=== PATIENT | female | born 1990 | race Caucasian/White ===

== ENCOUNTER 2017-05-27 11:08 | Emergency (ER) | payer OTHER ==
[~2017-05-27] VITALS: Ht 157.5 cm; Wt 60.0 kg
[~2017-05-27 11:08] MED LIST: CIPR-255 PO; LEVO-645 PO; SERT50TA PO
[2017-05-27 11:12] VITALS: TEMP 36.5; O2SAT 98; Ht 157.5 cm; Wt 60.0 kg
[2017-05-27] MEDS ORDERED: BCPILLS PO (11:53)
[2017-05-27] MEDS ORDERED: KETOROLAC TROMETHAMINE 60 MG/2 ML VIAL IM STA (12:08)
[2017-05-27] MEDS ORDERED: CYCL10TA6 PO (12:25)
--- NOTE | 2017-05-27 12:25 | EMERGENCY ROOM VISIT NOTE ---
ED Visit Note First contact with patient: 11:19 CHIEF COMPLAINT: Low back pain 4-5 days HISTORY OF PRESENT ILLNESS: Patient is an otherwise healthy 27-year-old white female who presents the emergency department for evaluation of low back pain. She describes a constant spasming pain in the midline of her low back, that does not radiate. Her symptoms started after doing core exercises over the weekend, roughly 5 days ago. She states that she had some expected pain the following day, and thought that she was starting to get a little bit better, then her symptoms worsened today after she was carrying some heavy boxes up some stairs. She states the pain had been a 4/10, which was manageable, but today the pain became a 8/10. She does have a history of some back problems and has seen orthopedics and physical therapy in the past. She has been told she has had some mild disc degeneration and facet joint issues. She describes pain with movement, particularly changing positions from sitting to standing. She has been doing heat, but has not taken any medications for her symptoms this week. She has used Flexeril in the past, but only at bedtime due to sedation. She denies any direct trauma to the back, no numbness, tingling or weakness into the lower extremities. No bowel or bladder incontinence. REVIEW OF SYSTEMS: Review of systems as per HPI. All other systems reviewed were negative. 10 systems reviewed. PMH: Electronic medical records are reviewed and summarized as above/below. See Problem List. SOCIAL HISTORY: Patient lives at home with her daughter. She is employed. Non -smoker. PHYSICAL EXAM: Vital Signs: Reviewed Nurse's notes. CONSTITUTIONAL: Patient is an otherwise healthy 27-year-old white female who is awake and alert and laying supine on the gurney in moderate distress due to their back pain. There is significant discomfort with position changes. NECK: No bruits auscultated. Supple without lymphadenopathy. No thyromegaly. No meningeal signs. Full active range of motion without discomfort. CARDIOVASCULAR: Regular rate and rhythm, with normal S1 and S2, no murmur or gallop or rub is heard. No carotid bruits auscultated. No JVD. Peripheral pulses easily palpable. RESPIRATORY: Breath sounds equal and clear to auscultation without wheezes, rales, or rhonchi heard. Full and equal chest expansion without accessory muscle use or retractions. ABDOMEN: Bowel sounds are present. Abdomen is soft, nontender and nondistended. INTEGUMENTARY: No lesions or rash, normal skin turgor. LYMPH: No lymphadenopathy. SPINE: Examination of the patient's back does not demonstrate any ecchymosis, abrasions or outward signs of trauma. No erythema, increased warmth or induration. Patient has midline discomfort to palpation over the low lumbar spine, there is no paraspinous muscle tenderness or spasm. There is no pain over the SI joint or the sciatic notch. She has increased pain with range of motion including rotation and flexion. EXTREMITIES: Leg lengths are symmetrical. Negative logroll bilaterally. Normal strength including dorsi-flexion and plantar flexion of the great toes and ankles and flexion and extension of the knees and flexion of the hips. Negative bilateral straight leg raise testing. Lower extremity DTRs are equal and symmetrical bilaterally. Distal pulses are easily palpable. Sensation light touch is intact over the lower extremities bilaterally. EMERGENCY DEPARTMENT COURSE: The patient was seen and evaluated. Her old records are reviewed. Treatment options were discussed with the patient. She does not have any new trauma or direct injury to the back to suspect fracture, and therefore it was not felt that radiographs were indicated. She is reluctant to use any narcotic medications due to sedation, after discussing with the patient her options she was agreeable to an injection of IM Toradol, then will use prescription strength ibuprofen. She was also willing to try using some Flexeril at bedtime. She was given Toradol 60 mg IM, observed and then discharged. Supportive care measures were discussed. She was encouraged to continue moist heat and gentle stretching and range of motion exercises. She reports that she has an orthopedic appointment on Thursday the . I do not suspect acute cord compression or cauda equina syndrome. The patient rated her discomfort a 7/10 at discharge. She was accompanied by her boyfriend. Medication reconciliation: I attest that I have personally reviewed the patient' s current medication list. Blood pressure screening: Patient was found to have a slightly elevated blood pressure due to circumstances. I do not believe that the patient requires hypertension monitoring. Problem List Medical Problems: (1) Removal of ovarian cyst Status: Resolved Surgical Problems: (1) Fractured nasal bones Status: Resolved (2) Tonsillectomy and adenoidectomy Status: Resolved Current/Historical Medications Scheduled Control Pills ( Control Pills), 1 TAB PO DAILY Ibuprofen Tab (Motrin), 800 MG PO TIDM Scheduled PRN Cyclobenzaprine Hcl (Flexeril), 10 MG PO TID PRN for Muscle Spasms Allergies Coded Allergies: No Known Allergies (Verified , ?, 05/27/17) Vital Signs Date Time Temp Pulse Resp B/P (MAP) Pulse Ox O2 Delivery O2 Flow Rate FiO2 05/27/17 12:47 64 16 105/71 05/27/17 11:12 36.5 113 20 147/87 98 Room Air Medications Administered Medications (Trade) Dose Ordered Sig/Ofe Route Start Time Stop Time Status Last Admin Dose Admin Ketorolac Tromethamine (Toradol Inj) 60 mg NOW STAT IM 05/27/17 12:08 05/27/17 12:09 DC 05/27/17 12:19 60 MG Departure Information Impression Primary Impression: Strain of lumbar region Prescriptions Ibuprofen Tab (MOTRIN) 800 Mg Tab 800 MG PO TIDM, #90 TAB Prov: Racheal Patel PA 05/27/17 Cyclobenzaprine Hcl (FLEXERIL) 10 Mg Tab 10 MG PO TID Y for Muscle Spasms, #20 TAB Prov: Racheal Patel PA 05/27/17 Referrals Gus Khan M.D. (PCP) Patient Instructions [facility] Additional Instructions Cyclobenzaprine (Flexeril) 10 mg: Take 5-10 mg 3 times daily as needed for muscle spasms.. Avoid alcohol, operating machinery or dangerous equipment, working on ladders or roofs, DRIVING, or situations where being under the influence may be dangerous. Ibuprofen(Motrin, Advil) may be used for fever or pain. Use 800 mg 3 times daily with food. Avoid using more than 2400mg in a 24 hour period. Do not use 2400mg per day for more than three consecutive days without physician direction. Prolonged inappropriate use can lead to stomach upset or ulcers. This medication can be taken if you need to drive, work, or perform activities which may be dangerous when taking narcotic pain medication. (AND/OR) Acetaminophen(Tylenol) may be used for fever or pain. Use 1000mg every six hours as needed. Avoid using more than 3000mg in a 24 hour period. This medication can be taken if you need to drive, work, or perform activities which may be dangerous when taking narcotic pain medication. Rest and avoid heavy lifting until your symptoms resolve and then gradually return to full activity. A good rule of thumb is if it hurts your back to perform a certain activity, then it should be avoided until you are healthy again. A heating pad, warm compresses, or a hot shower may help with tight muscles and can be done several times a day as needed. Continue current medications. Return to the ER immediately for any numbness, tingling, severe pain, loss of control of your bowels or bladder, inability to walk, or as needed. Follow up with orthopedics as you have scheduled for a recheck of your current condition.
[2017-05-27 12:47] VITALS: BP 105/71; PULSE 64
[2017-05-27] MEDS ORDERED: IBUP-1451 PO (13:12)
== END 2017-05-27 13:02 | disposition home or self-care (01) ==
LOC: C.EDB 11:09 → C.EDD 13:02
DX: S39.012A Strain of muscle, fascia and tendon of lower back, initial encounter (principal); X50.0XXA Overexertion from strenuous movement or load, initial encounter; Z79.3 Long term (current) use of hormonal contraceptives

== ENCOUNTER → 2017-06-01 | Outpatient (CLI) | payer OTHER ==
[~2017-06-01] MED LIST changes: +BCPILLS PO; -CIPR-255 PO; +CYCL10TA6 PO; +IBUP-1451 PO; -LEVO-645 PO; -SERT50TA PO
--- NOTE | 2017-06-01 15:32 | DIAGNOSTIC IMAGING REPORT ---
LUMBAR SPINE MIN 4 VIEWS CLINICAL HISTORY: LOWER BACK PAIN COMPARISON STUDY: No previous studies for comparison. FINDINGS: No fractures or dislocations are visualized. There are mild degenerative changes the T11-12 level. No destructive lesions are visualized. There is no pathologic bowel dilatation. IMPRESSION: No fractures or dislocations identified. Electronically signed by: Guero Cabrera M.D. 06/01/2017 3:31 PM Dictated Date/Time: 06/01/2017 3:30 PM
== END | disposition home or self-care (01) ==
LOC: C.RDSM 20:18
DX: M54.5 Low back pain (principal)

== ENCOUNTER → 2017-06-11 | Outpatient (CLI) | payer OTHER ==
[~2017-06-11] MED LIST changes: -CYCL10TA6 PO
--- NOTE | 2017-06-11 09:09 | DIAGNOSTIC IMAGING REPORT ---
LUMBAR SPINE MRI HISTORY: LOWER BACK PAIN TECHNIQUE: Multiplanar multisequence MRI of the lumbar spine was performed without the use of contrast. COMPARISON: Lumbar spine 06/01/2017. FINDINGS: For the purpose of the report the L5-S1 disc space will be located on axial image 27 of 30. Mild disc space narrowing and small endplate osteophytes at T11-T12. Disc desiccation at L4-L5 and L5-S1 without significant displacement. No fracture or subluxation within the lumbar spine. Paraspinal soft tissues are unremarkable. The conus terminates at the L1-L2 disc space level. L1-L2: No significant central canal or neural foraminal narrowing. L2-L3: No significant central canal or neural foraminal narrowing. L3-L4: No significant central canal or neural foraminal narrowing. L4-L5: Small focal central disc protrusion without significant central canal or neural foraminal narrowing. L5-S1: Small focal central disc protrusion without significant central canal or neural foraminal narrowing. IMPRESSION: 1. Small focal central disc protrusions at L4-L5 and L5-S1 without significant central canal or neural foraminal narrowing. 2. No fracture or subluxation within the lumbar spine. Electronically signed by: Qasim Brandt M.D. 06/11/2017 9:07 AM Dictated Date/Time: 06/11/2017 9:03 AM
== END | disposition home or self-care (01) ==
LOC: C.MRI 07:47
PROVIDERS: ATTEND Family Medicine
DX: M51.27 Other intervertebral disc displacement, lumbosacral region (principal)

== ENCOUNTER 2020-11-17 23:58 | Inpatient (IN) ==
[2020-11-18] MEDS ORDERED: OXYTOCIN 30 UNITS/500 ML BAG IV PRN ×2 (00:47→01:54)
[2020-11-18] MEDS: LACTATED RINGER'S 1,000 ML IV PRN ×3 (01:03→07:30)
[2020-11-18 01:09] LABS: Hematocrit (blood only) 31.9 % (37-47); Hemoglobin 10.6 g/dL (12.0-16.0); Mean Corpuscular Hemoglobin 30.5 pg (25-34); Mean Corpuscular Hgb Conc 33.2 g/dL (32-36); Mean Corpuscular Volume 91.9 fL (80-100); Mean Platelet Volume 9.5 fL (7.4-10.4); Platelet Count 333 K/uL (130-400); RDW Coefficient of Variation 13.2 % (11.5-14.5); Red Blood Count 3.47 M/uL (4.2-5.4); White Blood Count 19.15 K/uL (4.8-10.8)
[2020-11-18] MEDS ORDERED: SODIUM CHLORIDE 0.9% INJ 10 ML VIAL ONE (01:20)
[2020-11-18] MEDS ORDERED: ePHEDrine sulfate 50 MG/ML AMP ONE (01:20)
[2020-11-18] MEDS ORDERED: BUPIVACAINE 0.25% 30 ML VIAL ONE (01:20)
[2020-11-18] MEDS ORDERED: fentaNYL citrate 100 MCG/2 ML VIAL ONE (01:20)
[2020-11-18] MEDS ORDERED: fentaNYL 2MCG/ML ROPIVACAINE 1.25MG/ML 100 ML BAG EPI ONE (01:21)
[2020-11-18] MEDS ORDERED: ONDANSETRON INJ 2 MG/ML 2 ML VIAL IV PRN ×2 (01:24→08:27)
[2020-11-18] MEDS ORDERED: diphenhydrAMINE 50 MG/ML VIAL IV PRN ×2 (01:24→08:27)
[2020-11-18] MEDS ORDERED: fentaNYL 2MCG/ML ROPIVACAINE 1.25MG/ML 100 ML BAG EPI PRN (01:24)
[2020-11-18] MEDS ORDERED: ePHEDrine sulfate 50 MG/ML AMP IV PRN ×2 (01:24→08:27)
[2020-11-18] MEDS ORDERED: NALBUPHINE HCL INJ 10 MG/ML AMP IV PRN ×2 (01:24→08:27)
[2020-11-18] MEDS ORDERED: NALOXONE HCL 1 MG in SODIUM CHLORIDE 0.9% 1000ML 1,000 ML IV PRN ×2 (01:24→08:27)
[2020-11-18] MEDS ORDERED: NALOXONE HCL 0.4 MG/1 ML VIAL/CARP IV PRN ×2 (01:24→08:27)
--- NOTE | 2020-11-18 01:35 | Anesthesiology Consultation ---
Date of Service November 18, 2020 Assessment & Plan Chart Review Chart Review: Patient NOT seen in Pre Admission Testing and Acceptable Risk for Labor Epidural Consults Requested none ASA ASA2 Proposed Anesthesia Anesthesia Type: Labor Epidural and CSE Risk / Benefits Reviewed With: PT / POA / Parent / Guardian, Accepts Plan and Informed Consent Obtained History Height/Weight Height: 5 ft 2 in Weight: 84.368 kg Allergies Allergy/AdvReac Type Severity Reaction Status Date / Time No Known Allergies Allergy ? Verified 11/18/20 00:19 Medications Home Medications Medication Instructions Recorded Confirmed Last Taken [id number]-[id number]-Ob-[id number] 1 mg 1 tab PO DAILY 11/18/20 11/18/20 11/17/20 tablet valacyclovir 500 mg tablet 500 mg PO DAILY 11/18/20 11/18/20 Unknown (Valtrex) Active Medications Generic Name Dose Route Start Last Admin Trade Name Freq PRN Reason Stop Dose Admin Lactated Ringer's 1,000 mls @ 125 mls/hr 11/18/20 00:47 11/18/20 01:03 Lr IV 11/20/20 00:46 999 mls/hr .Q8H PRN Administration L&D Protocol Protocol NPO Date Last Intake of Fluids: 11/17/20 Time Last Intake of Fluids: 18:00 Date Last Intake of Solids: 11/17/20 Time Last Intake of Solids: 18:00 Past Medical History Medical History (Updated 11/18/20 @ 00:18 by Kiki Torres, RN) Anxiety Depression no meds Spontaneous vaginal delivery 01/2009 [facility] Exercise / Class Metabolic Activity II 4-5 Yardwork/Stairs/Walk up hill Past Surgical History Surgical History (Updated 11/18/20 @ 00:18 by Kiki Torres, RN) Status post tonsillectomy and adenoidectomy Past Anesthesia History No Hx of Anesthesia Complications and No Family Hx of Anesthesia Complications History of PONV No Hx of PONV and No Hx of Motion Sickness Social History Hx Alcohol Use: No Hx Substance Use: No Review of Systems no chest pain or sob Physical Exam Vital Signs Last Vital Signs Temp 36.7 C 11/18/20 00:23 Pulse 82 11/18/20 01:32 Resp 18 11/18/20 00:23 BP 118/76 11/18/20 00:10 Pulse Ox 98 11/18/20 01:32 ENMT Mouth: no TMJ abnormality Thyromental Distance: > or= 3.5 Finger Breadths Mallampati Class: II Neck normal visual inspection Respiratory normal respiratory effort Auscultation: lungs clear to auscultation bilaterally Cardiovascular Rate/Rhythm: regular rate and regular rhythm Musculoskeletal Spine: normal cervical ROM Neurologic moves all extremities Psychiatric Orientation: alert and oriented x 3 Testing Laboratory Results 11/18/20 00:57
--- NOTE | 2020-11-18 01:36 | History & Physical Report ---
Date of Service November 18, 2020 Assessment & Plan (1) Spontaneous rupture of amniotic membranes: Plan: 30-year-old -0-0-1 at 39 weeks and 3 days of gestation presenting with spontaneous rupture of membranes at term, vital signs stable afebrile, heart rate reassuring, No medical problems, GBS negative, Plan to admit, monitor, IV fluids, epidural for pain. Discussed his risk of intraamniotic infection with augmentation with oxytocin. Patient is reluctant to start oxytocin. Recommended recheck in 2 hours and if there is no change in cervix start low-dose oxytocin per protocol. Patient will decide in 2 hours when the cervix will be rechecked. Counseled about risks of intermittent infection to herself as endometritis, bacteremia, sepsis longer hospital stay and risk to the infant with IV antibiotic usage and longer stay. Patient understands all and all questions were answered. Admission and Anticipated Discharge Date Admission Date: November 18, 2020 History of Present Illness Chief Complaint: LOF Primary Care Provider: Gus Khan MD Patient is a 30 yo -0-0-1 at 39 weeks and 3 days of gestation who presented to labor and delivery with spontaneous rupture of membranes that happened at 11 PM last night on November 17. It was mostly clear with pink-tinged in color. She started to have contractions every 4 to 5 minutes and getting more painful and desires epidural for pain. She reports good movements. Her has been uncomplicated. All the testings and ultrasound were negative/normal. GBS negative. Rh- Allergies Allergy/AdvReac Type Severity Reaction Status Date / Time No Known Allergies Allergy ? Verified 11/18/20 00:19 Home Medications Medication Instructions Recorded Confirmed Type gpuxsxdn-gky-Rc-FA 1 mg 1 tab PO DAILY 11/18/20 11/18/20 History tablet valacyclovir 500 mg tablet 500 mg PO DAILY 11/18/20 11/18/20 History (Valtrex) Patient History Medical History Anxiety Depression no meds Spontaneous vaginal delivery 01/2009 [facility] Surgical History Status post tonsillectomy and adenoidectomy Social History Hx Alcohol Use: No Hx Substance Use: No Preferred Language: Armenian Communication Ability: Effective Wild Life Photographer Required: No Beliefs That Will Affect Care: None marital status: Current Living Situation: Spouse Current Living Situation Comment: house with and daughter Other Information That Helps Us Care for You: No Feels Safe at Home: Yes Safety Concerns: Feels Safe At This Time Assistive Devices: None OB History Full-term in 2009, female, 7 pounds 11 ounces, no complications. 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 Review of Systems as per Subjective / HPI Physical Exam Constitutional: well developed, well nourished and + acute distress (Mild distress with contractions only) Gastrointestinal (Abdomen): Inspection/Auscultation: abdomen normal to inspection and + abdomen distended (Gravid, Sivakumar 8-9 pounds) Genitourinary: normal external appearance (Grossly ruptured, clear amniotic fluid, nitrazine positive) OB Exam Abdomen: + vertex (Confirmed with bedside ultrasound) Manual OB Exam: + cervical dilation 4 cm, + cervical effacement 50% and + station -2 OB Exam Monitor Tracing: + external uterine monitor used and + category I Results & Data ([facility]) Vital Signs (Past 12 Hours) Vital Signs Temp Pulse Resp BP Pulse Ox 11/18/20 01:32 82 98 11/18/20 00:23 36.7 C 18 11/18/20 00:10 81 118/76 Laboratory Results Lab Results 11/18/20 11/18/20 11/18/20 Range/Units 00:46 00:46 00:57 WBC 19.15 H (4.8-10.8) K/uL RBC 3.47 L (4.2-5.4) M/uL Hgb 10.6 L (12.0-16.0) g/dL Hct 31.9 L (37-47) % MCV 91.9 (80-100) fL MCH 30.5 (25-34) pg MCHC 33.2 (32-36) g/dL RDW Std Deviation 44.0 (36.4-46.3) fL RDW Coeff of Maria D 13.2 (11.5-14.5) % Plt Count 333 (130-400) K/uL MPV 9.5 (7.4-10.4) fL COVID-19 Eval [facility] SARS-CoV-2, RNA, NAAT NEGATIVE (NEGATIVE) Code Status & VTE Plan VTE Prophylaxis Plan VTE Prophylaxis will be ordered: No
[2020-11-18] MEDS ORDERED: TERBUTALINE SULFATE 1 MG/ML VIAL ONE (07:50)
[2020-11-18] MEDS ORDERED: CITRIC ACID/SODIUM CITRATE 15 ML UDC ONE (07:55)
--- NOTE | 2020-11-18 07:59 | Obstetrical Progress Note ---
Date of Service November 18, 2020 Assessment & Plan Admission and Anticipated Discharge Date Admission Date: November 18, 2020 Subjective Patient has progressed to full dilatation. heart rate has been having decelerations with contractions, after more prolonged. We start to push for few times heart rate had prolonged decelerations to the 60s to 70s. Head is at +2 station with no descent with pushing. Patient is recommended to have imminent delivery with primary . She understands is a major surgery with possible risks of bleeding, infection, injury to her surrounding organs like bowel, bladder, ureter and increased risk of blood clots in legs and lungs. Patient understands and signed an informed consent. Terbutaline was given, heart rate is back up to 120s 130s. Results & Data ([facility]) Vital Signs (Past 12 Hours) Vital Signs Temp Pulse Resp BP Pulse Ox 11/18/20 07:53 91 H 100 11/18/20 07:48 87 100 11/18/20 07:46 111 H 80 L 11/18/20 07:44 93 H 124/80 11/18/20 07:43 90 100 11/18/20 07:39 117 H 74 L 11/18/20 07:38 103 H 100 11/18/20 07:33 100 H 100 11/18/20 07:31 90 120/79 11/18/20 07:28 96 H 100 11/18/20 07:23 91 H 100 11/18/20 07:18 90 100 11/18/20 07:14 95 H 122/58 L 11/18/20 07:13 101 H 100 11/18/20 07:10 99 H 89 L 11/18/20 07:08 89 100 11/18/20 07:03 103 H 100 11/18/20 07:00 36.4 C L 18 11/18/20 06:59 96 H 114/69 11/18/20 06:58 88 99 11/18/20 06:53 94 H 100 11/18/20 06:48 98 H 99 11/18/20 06:45 93 H 118/69 11/18/20 06:43 96 H 100 11/18/20 06:38 92 H 100 11/18/20 06:33 93 H 99 11/18/20 06:30 18 11/18/20 06:29 101 H 109/61 11/18/20 06:28 95 H 100 11/18/20 06:25 36.5 C 18 11/18/20 06:23 96 H 98 11/18/20 06:18 81 100 11/18/20 06:14 94 H 114/68 11/18/20 06:13 92 H 99 11/18/20 06:08 104 H 100 11/18/20 06:03 115 H 100 11/18/20 06:01 91 H 114/62 11/18/20 06:00 18 11/18/20 05:58 92 H 99 11/18/20 05:53 88 100 11/18/20 05:48 95 H 100 11/18/20 05:45 90 117/65 11/18/20 05:43 97 H 99 11/18/20 05:38 102 H 99 11/18/20 05:33 90 99 11/18/20 05:30 18 11/18/20 05:29 93 H 113/69 11/18/20 05:28 93 H 100 11/18/20 05:23 92 H 100 11/18/20 05:18 90 100 11/18/20 05:14 93 H 109/69 11/18/20 05:13 90 100 11/18/20 05:08 94 H 99 11/18/20 05:03 100 H 100 11/18/20 05:00 86 18 104/60 11/18/20 04:58 94 H 98 11/18/20 04:53 91 H 98 11/18/20 04:48 99 H 98 11/18/20 04:46 96 H 104/65 11/18/20 04:43 106 H 98 11/18/20 04:38 94 H 98 11/18/20 04:33 84 98 11/18/20 04:29 87 104/63 11/18/20 04:28 88 99 11/18/20 04:23 84 99 11/18/20 04:18 89 99 11/18/20 04:16 84 108/63 11/18/20 04:13 85 99 11/18/20 04:08 100 H 100 11/18/20 04:03 117 H 99 11/18/20 03:59 89 105/63 11/18/20 03:58 86 98 11/18/20 03:53 86 98 11/18/20 03:48 82 99 11/18/20 03:44 80 101/62 11/18/20 03:43 82 99 11/18/20 03:38 89 98 11/18/20 03:33 97 H 99 11/18/20 03:30 85 18 106/62 11/18/20 03:28 95 H 99 11/18/20 03:23 100 H 98 11/18/20 03:18 108 H 98 11/18/20 03:14 87 110/59 L 11/18/20 03:12 95 H 97 11/18/20 03:07 85 97 11/18/20 03:02 90 97 11/18/20 03:00 18 11/18/20 02:59 90 91/51 L 11/18/20 02:57 97 H 98 11/18/20 02:52 110 H 98 11/18/20 02:47 90 97 11/18/20 02:46 83 98/57 L 11/18/20 02:42 85 98 11/18/20 02:37 92 H 97 11/18/20 02:32 86 97 11/18/20 02:30 18 11/18/20 02:29 88 96/54 L 11/18/20 02:27 77 98 11/18/20 02:22 106 H 98 11/18/20 02:17 87 98 11/18/20 02:13 97 H 100/58 L 11/18/20 02:12 91 H 99 11/18/20 02:08 98 H 101/58 L 11/18/20 02:07 99 H 99 11/18/20 02:03 93 H 94/52 L 11/18/20 02:02 101 H 98 11/18/20 02:01 88 104/58 L 11/18/20 02:00 36.4 C L 18 11/18/20 01:59 91 H 99/58 L 11/18/20 01:57 95 H 95/49 L 99 11/18/20 01:55 105 H 106/58 L 11/18/20 01:53 96 H 110/57 L 11/18/20 01:52 90 109/55 L 99 11/18/20 01:49 85 109/61 11/18/20 01:47 101 H 123/76 99 11/18/20 01:45 89 131/77 11/18/20 01:43 96 H 135/82 11/18/20 01:42 93 H 99 11/18/20 01:40 88 93 11/18/20 01:39 93 H 133/81 11/18/20 01:37 94 H 158/96 H 98 11/18/20 01:32 82 98 11/18/20 01:30 20 11/18/20 00:23 36.7 C 18 11/18/20 00:10 36.7 C 81 18 118/76
[2020-11-18] MEDS ORDERED: MoRPHine SULFATE PF 1 MG/ML 10 ML AMP/VIAL ONE (08:01)
[2020-11-18] MEDS ORDERED: ONDANSETRON INJ 2 MG/ML 2 ML VIAL ONE (08:05)
[2020-11-18] MEDS ORDERED: METOCLOPRAMIDE HCL INJ 5 MG/ML 2 ML VIAL ONE (08:05)
[2020-11-18] MEDS ORDERED: SUCCINYLCHOLINE CHLORIDE 20 MG/ML 10 ML VIAL IV ONE (08:05)
[2020-11-18] MEDS ORDERED: PROPOFOL IV EMULSION 10 MG/ML 20 ML VIAL IV ONE (08:05)
[2020-11-18] MEDS ORDERED: OXYTOCIN 10 UNITS/ML VIAL ONE ×3 (08:05→08:41)
[2020-11-18] MEDS ORDERED: LIDOCAINE 2%/EPINEPHRINE 1:200,000 20 ML SDV ONE (08:05)
[2020-11-18] MEDS ORDERED: MEPERIDINE HCL 25 MG/ML CARP/VIAL IV PRN (08:27)
[2020-11-18] MEDS ORDERED: PROMETHAZINE HCL 6.25 MG in SODIUM CHLORIDE 0.9% 50 ML IV PRN (08:27)
[2020-11-18] MEDS ORDERED: MoRPHine SULFATE PF 1 MG/ML 10 ML AMP/VIAL EPI ONE (08:27)
[2020-11-18] MEDS ORDERED: LACTATED RINGER'S 500 ML IV PRN (08:27)
[2020-11-18] MEDS ORDERED: NALOXONE HCL 0.08 MG in SYRINGE 1.8 ML IV PRN (08:27)
[2020-11-18] MEDS ORDERED: DC INTRASPINAL MORPHINE SCH (08:30)
[2020-11-18] MEDS ORDERED: SODIUM CHLORIDE 0.9% 1000ML 1,000 ML IV SCH (08:30)
[2020-11-18] MEDS ORDERED: NO NARCOTICS OR SEDATIVES SCH (08:30)
[2020-11-18] MEDS ORDERED: METHYLERGONOVINE MALEATE 0.2 MG/ML AMP ONE (08:35)
[2020-11-18] MEDS ORDERED: MAGNESIUM HYDROXIDE SUSP 30 ML UDC PO PRN (09:13)
[2020-11-18] MEDS ORDERED: SENNA 8.6 MG TAB PO PRN (09:13)
[2020-11-18] MEDS ORDERED: SUPERCREAM 0.870% 15 GM JAR EXT PRN (09:13)
[2020-11-18] MEDS ORDERED: HYDROCORTISONE ACETATE 25 MG SUPP PR PRN (09:13)
[2020-11-18] MEDS ORDERED: DIPHTHERIA/TETANUS/PERTUSSIS 0.5 ML SYR/VIAL IM ONE (09:13)
[2020-11-18] MEDS ORDERED: MEASLES, MUMPS & RUBELLA VIRUS VIAL SQ ONE (09:13)
[2020-11-18] MEDS ORDERED: BENZOCAINE 20% AER SPR 82.5 GM CAN EXT PRN (09:13)
--- NOTE | 2020-11-18 09:13 | Post Operative Brief Note ---
Immediate Post Op Note v1 Date of Surgery November 18, 2020 Pre & Post Diagnosis Operation Date: 11/18/20 08:00 <No data on this case meets the specified criteria> I identified the patient and participated in the time-out.: Yes Procedure Operation Date: 11/18/20 08:00 <No data on this case meets the specified criteria> Primary Low transverse Ceserean Section Surgeon Aneudy Kmi MD Baller Tender RACHNA Trotter Estimated Blood Loss 700 Findings Consistent with Post-Op Diagnosis Drains Cash Catheter Anesthesia Type Labor Epidural Complications none Disposition Accompanied Patient To Recovery: Yes
[2020-11-18] MEDS ORDERED: LACTATED RINGER'S 1,000 ML IV SCH (09:15)
--- NOTE | 2020-11-18 10:48 | Anesthesia Procedure Note ---
Date of Service November 18, 2020 Anesthesia Post Epidural Note Vital Signs Vital Signs: Temp Pulse Resp BP Pulse Ox 36.5 C 86 18 112/63 100 11/18/20 09:15 11/18/20 10:46 11/18/20 10:15 11/18/20 10:46 11/18/20 10:43 Notes Mental Status: alert / awake / arousable and participated in evaluation Nausea / Vomiting: adequately controlled Pain: adequately controlled Airway Patency, RR, SpO2: stable & adequate BP & HR: stable & adequate Hydration State: stable & adequate Neuraxial Anesthesia: was administered and sensory block is resolving Anesthetic Complications: no major complications apparent Epidural: Removed without complications and With tip intact
--- NOTE | 2020-11-18 10:48 | Anesthesiology Progress Note ---
Date of Service November 18, 2020 Anesthesia Post Procedure Vital Signs Vital Signs: Temp Pulse Resp BP Pulse Ox 11/18/20 10:46 86 112/63 11/18/20 10:43 93 H 100 11/18/20 10:38 97 H 100 11/18/20 10:36 90 109/59 L 11/18/20 10:33 89 100 11/18/20 10:28 87 100 11/18/20 10:26 91 H 110/56 L 11/18/20 10:23 89 100 11/18/20 10:18 94 H 100 11/18/20 10:16 93 H 110/57 L 11/18/20 10:15 18 11/18/20 10:13 95 H 99 11/18/20 10:08 96 H 100 11/18/20 10:07 105 H 113/57 L 11/18/20 10:05 16 11/18/20 10:03 102 H 98 11/18/20 09:58 105 H 97 11/18/20 09:57 116 H 110/62 11/18/20 09:55 18 11/18/20 09:53 92 H 97 11/18/20 09:48 99 H 97 11/18/20 09:46 102 H 108/55 L 11/18/20 09:45 18 11/18/20 09:43 97 H 96 11/18/20 09:38 101 H 97 11/18/20 09:36 101 H 109/55 L 11/18/20 09:35 18 11/18/20 09:33 106 H 96 11/18/20 09:28 102 H 97 11/18/20 09:25 18 11/18/20 09:23 99 H 97 11/18/20 09:18 109 H 97 11/18/20 09:15 36.5 C 18 11/18/20 09:13 97 H 105/55 L 95 11/18/20 07:59 117 H 141/77 H 11/18/20 07:58 124 H 100 11/18/20 07:53 91 H 100 11/18/20 07:48 87 100 11/18/20 07:46 111 H 80 L 11/18/20 07:44 93 H 124/80 11/18/20 07:43 90 100 11/18/20 07:39 117 H 74 L 11/18/20 07:38 103 H 100 11/18/20 07:33 100 H 100 11/18/20 07:31 90 120/79 11/18/20 07:28 96 H 100 11/18/20 07:23 91 H 100 11/18/20 07:18 90 100 11/18/20 07:14 95 H 122/58 L 11/18/20 07:13 101 H 100 11/18/20 07:10 99 H 89 L 11/18/20 07:08 89 100 11/18/20 07:03 103 H 100 11/18/20 07:00 36.4 C L 18 11/18/20 06:59 96 H 114/69 11/18/20 06:58 88 99 11/18/20 06:53 94 H 100 11/18/20 06:48 98 H 99 11/18/20 06:45 93 H 118/69 11/18/20 06:43 96 H 100 11/18/20 06:38 92 H 100 11/18/20 06:33 93 H 99 11/18/20 06:30 18 11/18/20 06:29 101 H 109/61 11/18/20 06:28 95 H 100 11/18/20 06:25 36.5 C 18 11/18/20 06:23 96 H 98 11/18/20 06:18 81 100 11/18/20 06:14 94 H 114/68 11/18/20 06:13 92 H 99 11/18/20 06:08 104 H 100 11/18/20 06:03 115 H 100 11/18/20 06:01 91 H 114/62 11/18/20 06:00 18 11/18/20 05:58 92 H 99 11/18/20 05:53 88 100 11/18/20 05:48 95 H 100 11/18/20 05:45 90 117/65 11/18/20 05:43 97 H 99 11/18/20 05:38 102 H 99 11/18/20 05:33 90 99 11/18/20 05:30 18 11/18/20 05:29 93 H 113/69 11/18/20 05:28 93 H 100 11/18/20 05:23 92 H 100 11/18/20 05:18 90 100 11/18/20 05:14 93 H 109/69 11/18/20 05:13 90 100 11/18/20 05:08 94 H 99 11/18/20 05:03 100 H 100 11/18/20 05:00 86 18 104/60 11/18/20 04:58 94 H 98 11/18/20 04:53 91 H 98 11/18/20 04:48 99 H 98 11/18/20 04:46 96 H 104/65 11/18/20 04:43 106 H 98 11/18/20 04:38 94 H 98 11/18/20 04:33 84 98 11/18/20 04:29 87 104/63 11/18/20 04:28 88 99 11/18/20 04:23 84 99 11/18/20 04:18 89 99 11/18/20 04:16 84 108/63 11/18/20 04:13 85 99 11/18/20 04:08 100 H 100 11/18/20 04:03 117 H 99 11/18/20 03:59 89 105/63 11/18/20 03:58 86 98 11/18/20 03:53 86 98 11/18/20 03:48 82 99 11/18/20 03:44 80 101/62 11/18/20 03:43 82 99 11/18/20 03:38 89 98 11/18/20 03:33 97 H 99 11/18/20 03:30 85 18 106/62 11/18/20 03:28 95 H 99 11/18/20 03:23 100 H 98 11/18/20 03:18 108 H 98 11/18/20 03:14 87 110/59 L 11/18/20 03:12 95 H 97 11/18/20 03:07 85 97 11/18/20 03:02 90 97 11/18/20 03:00 18 11/18/20 02:59 90 91/51 L 11/18/20 02:57 97 H 98 11/18/20 02:52 110 H 98 11/18/20 02:47 90 97 11/18/20 02:46 83 98/57 L 11/18/20 02:42 85 98 11/18/20 02:37 92 H 97 11/18/20 02:32 86 97 11/18/20 02:30 18 11/18/20 02:29 88 96/54 L 11/18/20 02:27 77 98 11/18/20 02:22 106 H 98 11/18/20 02:17 87 98 11/18/20 02:13 97 H 100/58 L 11/18/20 02:12 91 H 99 11/18/20 02:08 98 H 101/58 L 11/18/20 02:07 99 H 99 11/18/20 02:03 93 H 94/52 L 11/18/20 02:02 101 H 98 11/18/20 02:01 88 104/58 L 11/18/20 02:00 36.4 C L 18 11/18/20 01:59 91 H 99/58 L 11/18/20 01:57 95 H 95/49 L 99 11/18/20 01:55 105 H 106/58 L 11/18/20 01:53 96 H 110/57 L 11/18/20 01:52 90 109/55 L 99 11/18/20 01:49 85 109/61 11/18/20 01:47 101 H 123/76 99 11/18/20 01:45 89 131/77 11/18/20 01:43 96 H 135/82 11/18/20 01:42 93 H 99 11/18/20 01:40 88 93 11/18/20 01:39 93 H 133/81 11/18/20 01:37 94 H 158/96 H 98 11/18/20 01:32 82 98 11/18/20 01:30 20 11/18/20 00:23 36.7 C 18 11/18/20 00:10 36.7 C 81 18 118/76 Transfer of Care Handoff Completed per policy Notes Mental Status: alert / awake / arousable Patient Amnestic to Procedure: Yes Nausea / Vomiting: adequately controlled Pain: adequately controlled Airway Patency, RR, SpO2: stable & adequate BP & HR: stable & adequate Hydration State: stable & adequate Anesthetic Complications: no major complications apparent
--- NOTE | 2020-11-18 10:56 | Operative Report (OR) ---
DATE OF SURGERY: 11/18/2020. PREOPERATIVE DIAGNOSES: The patient is a 30-year-old G2, P1-0-0-1 at 39 weeks and 4 days of gestation, who presents to labor and delivery with spontaneous rupture of membranes, progressed to full dilatation and recurrent prolonged decelerations with contractions. intolerance to labor. POSTOPERATIVE DIAGNOSES: The patient is a 30-year-old G2, P1-0-0-1 at 39 weeks and 4 days of gestation, who presents to labor and delivery with spontaneous rupture of membranes, progressed to full dilatation and recurrent prolonged decelerations with contractions. intolerance to labor and true knot on cord and nuchal cord around the neck. PROCEDURE: Primary low transverse with Pfannenstiel skin incision. SURGEON: Aneudy Kim MD [employer] FAMILY MEMBER: Rose Marie Wen RN. ESTIMATED BLOOD LOSS: 700 mL. DRAINS: Acsh catheter drained 250 mL of clear urine. ANESTHESIA: Labor epidural, Dr. Elizabeth. COMPLICATIONS: None. FINDINGS: Baby was a viable male infant delivered at 08:19 a.m. Apgars were 9/9, weight was 3700 grams, the baby was in cephalic presentation, nuchal cord around the neck x1, true knot on the cord. FINDINGS: Normal uterus, fallopian tubes, and ovaries. DESCRIPTION OF PROCEDURE: The patient was taken to the operating room where epidural anesthesia was found to be adequate. She was placed in dorsal supine position with a leftward tilt. She was prepared and draped in the usual sterile fashion. A Pfannenstiel skin incision was made and carried through to the underlying layer of fascia with the Bovie. Fascia was incised in the midline and the incision was extended laterally with the help of tip of the Bovie and the lower aspect of the fascial incision was dissected off from the rectus muscles with the Toth scissors and then upper aspect of the fascial incision was grasped with 2 Garry clamps, elevated, and underlying rectus muscles were dissected off sharply with Toth scissors and bluntly with fingers. Rectus muscles were already the peritoneum was entered bluntly with fingers. Peritoneal incision was extended superiorly and inferiorly with good visualization of the bladder. Bladder blade was inserted. Vesicouterine peritoneum was identified, grasped with pickups, and entered sharply with Metzenbaum scissors. Bladder flap was created digitally and the bladder blade was reinserted. Lower uterine segment was incised in a transverse fashion and a membranes were ruptured. Clear fluid was obtained. This incision was extended laterally with the help of fingers and then there was a cord on the incision. Head was brought to the incision and delivered without difficulty. There was a nuchal cord, which was reduced and then baby was delivered without difficulty, he was vigorously moving and crying. There was a true knot on the cord. Cord was clamped x2 and cut at 1 minute delay. Baby was handed to the waiting pediatric team with Dr Lopez. Placenta was delivered manually as intact and complete. Uterus was exteriorized and cleared of all clots and debris. Uterine incision was repaired with 0 Vicryl in a running locked fashion. Imbricating second layer was placed with another 0 Vicryl in a running locked fashion and there was minimal oozing in the middle of the incision. It was controlled with [id number] stitches x2 with 0 Vicryl. Uterine incision was hemostatic. Cul-de-sac was irrigated with warm normal saline and suctioned. Ovaries and fallopian tubes were checked to be normal as well as cul-de-sac peritoneum and the uterus and then uterus was returned to the abdomen. Pelvis was irrigated with warm normal saline and suctioned. Uterine incision was checked to be hemostatic again. Parietal peritoneum was reapproximated with 3-0 Vicryl in a running fashion and the rectus muscles were reapproximated with the same suture in a running fashion. Rectus muscles and under the fascia were hemostatic. Fascia was reapproximated with 0 Vicryl in a running fashion and the subcuticular fat tissue was brought together with 3-0 Vicryl in a running fashion. The skin was closed with 4-0 Monocryl in a subcuticular fashion. The patient tolerated the procedure well. Sponge, lap, and needle count was correct x3. She was given 2 g of cefazolin before surgery. She was taken to recovery room in stable condition. No complications happened and I was present during whole procedure. Job ID: [id number] [facility]
[2020-11-18] MEDS: OXYTOCIN 20 UNITS in LACTATED RINGER'S 1,000 ML IV SCH ×3 (11:12→20:46)
[2020-11-18] MEDS: KETOROLAC 30 MG/ML VIAL IV PRN ×2 (12:23→18:23)
--- NOTE | 2020-11-18 14:21 | Obstetrical Progress Note ---
Date of Service November 18, 2020 Assessment & Plan Admission and Anticipated Discharge Date Admission Date: November 18, 2020 Subjective Postop check Patient is seen and examined Feels well, no complaints Pain is under control with meds No CP/ SOB/ Dizziness/ N&V/ VB/ Leg pain Not OOB yet Tolerating clears [place] is doing well Explained about the surgery and findings Vital Signs Height Weight Body Mass Index Blood Pressure Blood Pressure Position Temperature Temperature Source 5 ft 2 in 84.368 kg 34.0 107/68 Lying 36.8 C Oral 11/18/20 01:35 11/18/20 01:35 11/18/20 00:23 11/18/20 12:15 11/18/20 12:15 11/18/20 12:15 11/18/20 12:15 Pulse Rate Respiratory Rate Pulse Oximetry 96 H 20 99 11/18/20 12:15 11/18/20 14:00 11/18/20 14:00 > 400 ml clear urine in bag PE: General: Alert, orientedx3, NAD CVS: S1S2 RRR Lungs: CTAB Abd: soft, NT, ND, BS+, Incision C/D/I, fundus firm below U No VB Ext: NT, no edema, SCD's on AP: 30 yo female s/p Primary Csection , pod#0 VSS Afebrile doing well Continue to routine postop care and monitor Advance diet as tolerated Results & Data ([facility]) Vital Signs (Past 12 Hours) Vital Signs Temp Pulse Pulse Resp BP BP Pulse Ox 11/18/20 14:00 20 99 11/18/20 13:00 20 100 11/18/20 12:15 36.8 C 96 H 18 107/68 100 11/18/20 11:35 18 100 11/18/20 11:28 90 100 11/18/20 11:23 83 100 11/18/20 11:18 87 100 11/18/20 11:16 36.5 C 83 18 108/57 L 11/18/20 11:13 108 H 100 11/18/20 11:08 113 H 100 11/18/20 11:06 92 H 109/60 11/18/20 11:03 91 H 100 11/18/20 10:58 90 100 11/18/20 10:56 96 H 111/61 11/18/20 10:53 86 100 11/18/20 10:48 86 100 11/18/20 10:46 86 112/63 11/18/20 10:45 18 11/18/20 10:43 93 H 100 11/18/20 10:38 97 H 100 11/18/20 10:36 90 109/59 L 11/18/20 10:33 89 100 11/18/20 10:28 87 100 11/18/20 10:26 91 H 110/56 L 11/18/20 10:23 89 100 11/18/20 10:18 94 H 100 11/18/20 10:16 93 H 110/57 L 11/18/20 10:15 18 11/18/20 10:13 95 H 99 11/18/20 10:08 96 H 100 11/18/20 10:07 105 H 113/57 L 11/18/20 10:05 16 11/18/20 10:03 102 H 98 11/18/20 09:58 105 H 97 11/18/20 09:57 116 H 110/62 11/18/20 09:55 18 11/18/20 09:53 92 H 97 11/18/20 09:48 99 H 97 11/18/20 09:46 102 H 108/55 L 11/18/20 09:45 18 11/18/20 09:43 97 H 96 11/18/20 09:38 101 H 97 11/18/20 09:36 101 H 109/55 L 11/18/20 09:35 18 11/18/20 09:33 106 H 96 11/18/20 09:28 102 H 97 11/18/20 09:25 18 11/18/20 09:23 99 H 97 11/18/20 09:18 109 H 97 11/18/20 09:15 36.5 C 18 11/18/20 09:13 97 H 105/55 L 95 11/18/20 07:59 117 H 141/77 H 11/18/20 07:58 124 H 100 11/18/20 07:53 91 H 100 11/18/20 07:48 87 100 11/18/20 07:46 111 H 80 L 11/18/20 07:44 93 H 124/80 11/18/20 07:43 90 100 11/18/20 07:39 117 H 74 L 11/18/20 07:38 103 H 100 11/18/20 07:33 100 H 100 11/18/20 07:31 90 120/79 11/18/20 07:28 96 H 100 11/18/20 07:23 91 H 100 11/18/20 07:18 90 100 11/18/20 07:14 95 H 122/58 L 11/18/20 07:13 101 H 100 11/18/20 07:10 99 H 89 L 11/18/20 07:08 89 100 11/18/20 07:03 103 H 100 11/18/20 07:00 36.4 C L 18 11/18/20 06:59 96 H 114/69 11/18/20 06:58 88 99 11/18/20 06:53 94 H 100 11/18/20 06:48 98 H 99 11/18/20 06:45 93 H 118/69 11/18/20 06:43 96 H 100 11/18/20 06:38 92 H 100 11/18/20 06:33 93 H 99 11/18/20 06:30 18 11/18/20 06:29 101 H 109/61 11/18/20 06:28 95 H 100 11/18/20 06:25 36.5 C 18 11/18/20 06:23 96 H 98 11/18/20 06:18 81 100 11/18/20 06:14 94 H 114/68 11/18/20 06:13 92 H 99 11/18/20 06:08 104 H 100 11/18/20 06:03 115 H 100 11/18/20 06:01 91 H 114/62 11/18/20 06:00 18 11/18/20 05:58 92 H 99 11/18/20 05:53 88 100 11/18/20 05:48 95 H 100 11/18/20 05:45 90 117/65 11/18/20 05:43 97 H 99 11/18/20 05:38 102 H 99 11/18/20 05:33 90 99 11/18/20 05:30 18 11/18/20 05:29 93 H 113/69 11/18/20 05:28 93 H 100 11/18/20 05:23 92 H 100 11/18/20 05:18 90 100 11/18/20 05:14 93 H 109/69 11/18/20 05:13 90 100 11/18/20 05:08 94 H 99 11/18/20 05:03 100 H 100 11/18/20 05:00 86 18 104/60 11/18/20 04:58 94 H 98 11/18/20 04:53 91 H 98 11/18/20 04:48 99 H 98 11/18/20 04:46 96 H 104/65 11/18/20 04:43 106 H 98 11/18/20 04:38 94 H 98 11/18/20 04:33 84 98 11/18/20 04:29 87 104/63 11/18/20 04:28 88 99 11/18/20 04:23 84 99 11/18/20 04:18 89 99 11/18/20 04:16 84 108/63 11/18/20 04:13 85 99 11/18/20 04:08 100 H 100 11/18/20 04:03 117 H 99 11/18/20 03:59 89 105/63 11/18/20 03:58 86 98 11/18/20 03:53 86 98 11/18/20 03:48 82 99 11/18/20 03:44 80 101/62 11/18/20 03:43 82 99 11/18/20 03:38 89 98 11/18/20 03:33 97 H 99 11/18/20 03:30 85 18 106/62 11/18/20 03:28 95 H 99 11/18/20 03:23 100 H 98 11/18/20 03:18 108 H 98 11/18/20 03:14 87 110/59 L 11/18/20 03:12 95 H 97 11/18/20 03:07 85 97 11/18/20 03:02 90 97 11/18/20 03:00 18 11/18/20 02:59 90 91/51 L 11/18/20 02:57 97 H 98 11/18/20 02:52 110 H 98 11/18/20 02:47 90 97 11/18/20 02:46 83 98/57 L 11/18/20 02:42 85 98 11/18/20 02:37 92 H 97 11/18/20 02:32 86 97 11/18/20 02:30 18 11/18/20 02:29 88 96/54 L 11/18/20 02:27 77 98 11/18/20 02:22 106 H 98 11/18/20 02:17 87 98
[2020-11-18] MEDS: SIMETHICONE 80 MG CHEW PO SCH ×3 (15:13→20:44)
[2020-11-18] MEDS ORDERED: ceFAZolin 2000MG 2,000 MG/15 ML SYR IV ONE (16:00)
[2020-11-18] MEDS: DOCUSATE SODIUM 100 MG CAP PO SCH (20:45)
[2020-11-19] MEDS: KETOROLAC 30 MG/ML VIAL IV PRN (00:23)
[2020-11-19] MEDS ORDERED: MEPERIDINE HCL 50 MG/ML CARP IV PRN (02:28)
[2020-11-19] MEDS ORDERED: ONDANSETRON INJ 2 MG/ML 2 ML VIAL IV PRN (02:28)
[2020-11-19] MEDS ORDERED: diphenhydrAMINE 50 MG/ML VIAL IV PRN (02:28)
[2020-11-19] MEDS ORDERED: PROMETHAZINE HCL 25 MG in SODIUM CHLORIDE 0.9% 50 ML IV PRN (02:28)
[2020-11-19] MEDS ORDERED: diphenhydrAMINE Capsule 25 MG CAP PO PRN (02:28)
[2020-11-19] MEDS: oxyCODONE/ACETAMINOPHEN 5mg/325mg TAB PO PRN ×5 (05:41→19:48)
[2020-11-19] MEDS: IBUPROFEN 600 MG TAB PO PRN ×4 (05:42→19:47)
[2020-11-19 06:39] LABS: Hematocrit (blood only) 25.6 % (37-47); Hemoglobin 8.4 g/dL (12.0-16.0); Mean Corpuscular Hemoglobin 30.4 pg (25-34); Mean Corpuscular Hgb Conc 32.8 g/dL (32-36); Mean Corpuscular Volume 92.8 fL (80-100); Mean Platelet Volume 9.1 fL (7.4-10.4); Platelet Count 276 K/uL (130-400); RDW Coefficient of Variation 13.4 % (11.5-14.5); RDW Standard Deviation 45.1 fL (36.4-46.3); Red Blood Count 2.76 M/uL (4.2-5.4); White Blood Count 23.37 K/uL (4.8-10.8)
[2020-11-19 07:05] LABS: ALC (manual) 2.64 K/uL (1.2-3.4); ANC (manual) 20.12 K/uL (1.4-6.5); Lymphocytes # (manual) 2.64 K/uL (1.2-3.4); Lymphocytes % (manual) 11.3 %; Monocytes # (manual) 0.61 K/uL (0.11-0.59); Monocytes % (manual) 2.6 %; Neutrophils # (manual) 20.12 K/uL (1.4-6.5); Neutrophils % (manual) 86.1 %
[2020-11-19] MEDS: FERROUS SULFATE 325 MG TAB PO SCH (07:51)
[2020-11-19] MEDS: SIMETHICONE 80 MG CHEW PO SCH ×4 (07:51→20:57)
[2020-11-19] MEDS: PRENATAL VITAMIN 1 TAB PO SCH (07:51)
[2020-11-19] MEDS: DOCUSATE SODIUM 100 MG CAP PO SCH ×2 (07:51→20:57)
--- NOTE | 2020-11-19 08:59 | Obstetrical Progress Note ---
Date of Service November 19, 2020 Subjective Ambulation: limited ambulation Voiding: no voiding problems Passing Gas:: Yes Diet Tolerance:: regular diet Lochia:: Small Feeding Type:: breast feeding Current Pain Level(1-10): 0 doing well Physical Exam Constitutional WD/WN, vitals as above comfortable incision c/d/i abdomen soft and non-tender fundus firm below U no edema neg Davide's Results & Data ([facility]) Vital Signs (Past 12 Hours) Vital Signs Temp Pulse Resp BP BP Pulse Ox 11/19/20 07:55 36.5 C 95 H 16 114/74 96 11/19/20 04:45 36.8 C 81 16 104/62 97 11/19/20 01:45 16 96 11/19/20 00:30 16 96 11/18/20 23:45 16 98 11/18/20 23:01 37.1 C 103 H 16 118/68 98 11/18/20 22:45 18 96 11/18/20 21:45 16 98 Laboratory Results 11/18/20 11/18/20 11/18/20 00:46 00:46 00:57 WBC 19.15 H RBC 3.47 L Hgb 10.6 L Hct 31.9 L MCV 91.9 MCH 30.5 MCHC 33.2 RDW Std Deviation 44.0 RDW Coeff of Maria D 13.2 Plt Count 333 MPV 9.5 Neutrophils % (Manual) Lymphocytes % (Manual) Monocytes % (Manual) Neutrophils # (Manual) Total Absolute Neuts Lymphocytes # (Manual) Total Abs Lymphocytes Monocytes # (Manual) COVID-19 Eval Order Covid19 IDNow [facility] SARS-CoV-2, RNA, NAAT NEGATIVE 11/19/20 06:10 WBC 23.37 H RBC 2.76 L Hgb 8.4 L Hct 25.6 L MCV 92.8 MCH 30.4 MCHC 32.8 RDW Std Deviation 45.1 RDW Coeff of Maria D 13.4 Plt Count 276 MPV 9.1 Neutrophils % (Manual) 86.1 Lymphocytes % (Manual) 11.3 Monocytes % (Manual) 2.6 Neutrophils # (Manual) 20.12 H Total Absolute Neuts 20.12 H Lymphocytes # (Manual) 2.64 Total Abs Lymphocytes 2.64 Monocytes # (Manual) 0.61 H COVID-19 Eval Order SARS-CoV-2, RNA, NAAT
[2020-11-19] MEDS ORDERED: bisacodyL 5 MG TABEC PO SCH (20:00)
[2020-11-20] MEDS: IBUPROFEN 600 MG TAB PO PRN ×6 (02:47→23:23)
[2020-11-20] MEDS: oxyCODONE/ACETAMINOPHEN 5mg/325mg TAB PO PRN ×6 (02:48→23:23)
[2020-11-20 07:42] LABS: Hematocrit (blood only) 23.4 % (37-47); Hemoglobin 7.5 g/dL (12.0-16.0); Mean Corpuscular Hgb Conc 32.1 g/dL (32-36); Mean Corpuscular Volume 93.6 fL (80-100); Mean Platelet Volume 8.9 fL (7.4-10.4); Platelet Count 305 K/uL (130-400); RDW Coefficient of Variation 13.7 % (11.5-14.5); RDW Standard Deviation 47.1 fL (36.4-46.3); White Blood Count 18.88 K/uL (4.8-10.8)
[2020-11-20 08:05] LABS: ALC (manual) 2.13 K/uL (1.2-3.4); ANC (manual) 15.76 K/uL (1.4-6.5); Basophils # (manual) 0.17 K/uL (0-0.2); Basophils % (manual) 0.9 %; Lymphocytes # (manual) 2.13 K/uL (1.2-3.4); Lymphocytes % (manual) 11.3 %; Monocytes # (manual) 0.49 K/uL (0.11-0.59); Monocytes % (manual) 2.6 %; Myelocytes # (manual) 0.32 K/uL (0-0); Myelocytes % (manual) 1.7 %; Neutrophils # (manual) 15.76 K/uL (1.4-6.5); Neutrophils % (manual) 83.5 %; RBC Morphology Unremarkable
--- NOTE | 2020-11-20 08:18 | Obstetrical Progress Note ---
Date of Service November 20, 2020 Assessment & Plan Admission and Anticipated Discharge Date Admission Date: November 18, 2020 Subjective Patient is seen and examined. She feels well, no complaints. Pain is under control with oral meds. Ambulating without dizziness Voiding without difficulty Tolerating regular diet with out N&V Flatus + BM neg Bleeding is minimal No fever/ chills/ CP/ SOB/ N&V/ Leg pain Bottle feeding without problems Vital Signs Temp Pulse Pulse Resp BP BP BP 11/19/20 23:00 36.6 C 86 16 95/54 L 11/19/20 19:55 36.6 C 88 16 102/66 11/19/20 15:25 36.7 C 90 18 111/75 11/19/20 13:09 36.7 C 95 H 18 104/66 Pulse Ox 11/19/20 23:00 97 11/19/20 19:55 11/19/20 15:25 99 11/19/20 13:09 96 Lab Results 11/18/20 11/18/20 11/18/20 Range/Units 00:46 00:46 00:57 WBC 19.15 H (4.8-10.8) K/uL RBC 3.47 L (4.2-5.4) M/uL Hgb 10.6 L (12.0-16.0) g/dL Hct 31.9 L (37-47) % MCV 91.9 (80-100) fL MCH 30.5 (25-34) pg MCHC 33.2 (32-36) g/dL RDW Std Deviation 44.0 (36.4-46.3) fL RDW Coeff of Maria D 13.2 (11.5-14.5) % Plt Count 333 (130-400) K/uL MPV 9.5 (7.4-10.4) fL Neutrophils % (Manual) % Lymphocytes % (Manual) % Monocytes % (Manual) % Basophils % (Manual) % Myelocytes % (Man) % Neutrophils # (Manual) (1.4-6.5) K/uL Total Absolute Neuts (1.4-6.5) K/uL Lymphocytes # (Manual) (1.2-3.4) K/uL Total Abs Lymphocytes (1.2-3.4) K/uL Monocytes # (Manual) (0.11-0.59) K/uL Basophils # (Manual) (0-0.2) K/uL Myelocytes # (Manual) (0-0) K/uL RBC Morphology COVID-19 [facility]-2, RNA, NAAT NEGATIVE (NEGATIVE) Blood Type Antibody Screen Screen (Negative) 11/19/20 11/19/20 11/20/20 Range/Units 06:10 06:10 07:07 WBC 23.37 H 18.88 H (4.8-10.8) K/uL RBC 2.76 L 2.50 L (4.2-5.4) M/uL Hgb 8.4 L 7.5 L (12.0-16.0) g/dL Hct 25.6 L 23.4 L (37-47) % MCV 92.8 93.6 (80-100) fL MCH 30.4 30.0 (25-34) pg MCHC 32.8 32.1 (32-36) g/dL RDW Std Deviation 45.1 47.1 H (36.4-46.3) fL RDW Coeff of Maria D 13.4 13.7 (11.5-14.5) % Plt Count 276 305 (130-400) K/uL MPV 9.1 8.9 (7.4-10.4) fL Neutrophils % (Manual) 86.1 83.5 % Lymphocytes % (Manual) 11.3 11.3 % Monocytes % (Manual) 2.6 2.6 % Basophils % (Manual) 0.9 % Myelocytes % (Man) 1.7 % Neutrophils # (Manual) 20.12 H 15.76 H (1.4-6.5) K/uL Total Absolute Neuts 20.12 H 15.76 H (1.4-6.5) K/uL Lymphocytes # (Manual) 2.64 2.13 (1.2-3.4) K/uL Total Abs Lymphocytes 2.64 2.13 (1.2-3.4) K/uL Monocytes # (Manual) 0.61 H 0.49 (0.11-0.59) K/uL Basophils # (Manual) 0.17 (0-0.2) K/uL Myelocytes # (Manual) 0.32 H (0-0) K/uL RBC Morphology Unremarkable COVID-19 Eval Order SARS-CoV-2, RNA, NAAT (NEGATIVE) Blood Type O Negative Antibody Screen NEGATIVE Screen Negative (Negative) PE: General: Alert, orientedx3, NAD CVS: S1S2 RRR Lungs; CTAB Abd: soft, NT, ND, BS+, fundus firm, below Umbilicus Incision: Clean, dry, intact Perineum intact, Lochia rubra minimal Ext; NT, no edema AP: 30 yo s/p C Section, pod# 2 VSS Afebrile doing well Continue routine postop care Encourage ambulation, PO intake Anemic asymptomatic, will increase iron bid, repeat at noon Discussed symptoms of anemia, how to take iron and possible blood transfusion All questions were answered Results & Data ([facility]) Vital Signs (Past 12 Hours) Vital Signs Temp Pulse Resp BP Pulse Ox 11/19/20 23:00 36.6 C 86 16 95/54 L 97
[2020-11-20] MEDS: DOCUSATE SODIUM 100 MG CAP PO SCH ×2 (08:22→21:42)
[2020-11-20] MEDS: SIMETHICONE 80 MG CHEW PO SCH ×4 (08:23→21:42)
[2020-11-20] MEDS: FERROUS SULFATE 325 MG TAB PO SCH ×3 (08:23→17:37)
[2020-11-20] MEDS: PRENATAL VITAMIN 1 TAB PO SCH (08:23)
[2020-11-20] MEDS ORDERED: bisacodyL 10 MG SUPP PR PRN (09:13)
[2020-11-20 12:51] LABS: Hematocrit (blood only) 22.8 % (37-47); Hemoglobin 7.3 g/dL (12.0-16.0); Mean Corpuscular Hemoglobin 30.2 pg (25-34); Mean Corpuscular Volume 94.2 fL (80-100); Platelet Count 313 K/uL (130-400); RDW Coefficient of Variation 13.7 % (11.5-14.5); RDW Standard Deviation 47.3 fL (36.4-46.3); Red Blood Count 2.42 M/uL (4.2-5.4); White Blood Count 16.68 K/uL (4.8-10.8)
[2020-11-20 13:11] LABS: ALC (manual) 2.17 K/uL (1.2-3.4); ANC (manual) 13.21 K/uL (1.4-6.5); Eosinophils # (manual) 0.43 K/uL (0-0.5); Eosinophils % (manual) 2.6 %; Lymphocytes # (manual) 2.17 K/uL (1.2-3.4); Monocytes # (manual) 0.28 K/uL (0.11-0.59); Monocytes % (manual) 1.7 %; Myelocytes # (manual) 0.58 K/uL (0-0); Myelocytes % (manual) 3.5 %; Neutrophils # (manual) 13.21 K/uL (1.4-6.5); Neutrophils % (manual) 79.2 %
--- NOTE | 2020-11-20 17:13 | Obstetrical Progress Note ---
Date of Service November 20, 2020 Assessment & Plan Admission and Anticipated Discharge Date Admission Date: November 18, 2020 Subjective Attempted to see her but she was sleeping H&H stable and she has been ambulating well with no dizziness per her nurse. Continue to monitor closely CBC in am Results & Data ([facility]) Vital Signs (Past 12 Hours) Vital Signs Temp Pulse Resp BP Pulse Ox 11/20/20 11:45 36.5 C 83 118/71 99 11/20/20 07:30 36.7 C 77 18 105/71 98
[2020-11-20] MEDS ORDERED: MAGNESIUM HYDROXIDE SUSP 30 ML UDC PO ONE (22:47)
--- NOTE | 2020-11-20 22:47 | Obstetrical Progress Note ---
Date of Service November 20, 2020 Assessment & Plan Admission and Anticipated Discharge Date Admission Date: November 18, 2020 Subjective Patient is reevaluated She still feels tired, does not think she got enough sleep. She slept last night and this morning and took some naps this afternoon. She walked around [address] many times without dizziness. No CP/SOB [place] palpitation one time while trying to sleep Flatus+ No BM PE: Seems tired and pale CVS S1 S2 RRR, rate 90 Lungs CTAB Abd: soft, NT, fundus firm below U, incision C/D/I No VB Discussed her CBC results and oral iron therapy vs blood transfusion. Discussed benefits and risks of blood transfusion in details She and her has questions, answered them all. They like to discuss between each other and then decide. Vital Signs Temp Pulse Resp BP Pulse Ox 11/20/20 19:40 36.9 C 84 18 122/79 11/20/20 16:10 36.8 C 79 18 110/70 99 11/20/20 11:45 36.5 C 83 118/71 99 Lab Results 11/18/20 11/18/20 11/18/20 Range/Units 00:46 00:46 00:57 WBC 19.15 H (4.8-10.8) K/uL RBC 3.47 L (4.2-5.4) M/uL Hgb 10.6 L (12.0-16.0) g/dL Hct 31.9 L (37-47) % MCV 91.9 (80-100) fL MCH 30.5 (25-34) pg MCHC 33.2 (32-36) g/dL RDW Std Deviation 44.0 (36.4-46.3) fL RDW Coeff of Maria D 13.2 (11.5-14.5) % Plt Count 333 (130-400) K/uL MPV 9.5 (7.4-10.4) fL Neutrophils % (Manual) % Lymphocytes % (Manual) % Monocytes % (Manual) % Eosinophils % (Manual) % Basophils % (Manual) % Myelocytes % (Man) % Neutrophils # (Manual) (1.4-6.5) K/uL Total Absolute Neuts (1.4-6.5) K/uL Lymphocytes # (Manual) (1.2-3.4) K/uL Total Abs Lymphocytes (1.2-3.4) K/uL Monocytes # (Manual) (0.11-0.59) K/uL Eosinophils # (Manual) (0-0.5) K/uL Basophils # (Manual) (0-0.2) K/uL Myelocytes # (Manual) (0-0) K/uL RBC Morphology COVID-19 Eval [facility] SARS-CoV-2, RNA, NAAT NEGATIVE (NEGATIVE) Blood Type Antibody Screen Screen (Negative) 11/19/20 11/19/20 11/20/20 Range/Units 06:10 06:10 07:07 WBC 23.37 H 18.88 H (4.8-10.8) K/uL RBC 2.76 L 2.50 L (4.2-5.4) M/uL Hgb 8.4 L 7.5 L (12.0-16.0) g/dL Hct 25.6 L 23.4 L (37-47) % MCV 92.8 93.6 (80-100) fL MCH 30.4 30.0 (25-34) pg MCHC 32.8 32.1 (32-36) g/dL RDW Std Deviation 45.1 47.1 H (36.4-46.3) fL RDW Coeff of Maria D 13.4 13.7 (11.5-14.5) % Plt Count 276 305 (130-400) K/uL MPV 9.1 8.9 (7.4-10.4) fL Neutrophils % (Manual) 86.1 83.5 % Lymphocytes % (Manual) 11.3 11.3 % Monocytes % (Manual) 2.6 2.6 % Eosinophils % (Manual) % Basophils % (Manual) 0.9 % Myelocytes % (Man) 1.7 % Neutrophils # (Manual) 20.12 H 15.76 H (1.4-6.5) K/uL Total Absolute Neuts 20.12 H 15.76 H (1.4-6.5) K/uL Lymphocytes # (Manual) 2.64 2.13 (1.2-3.4) K/uL Total Abs Lymphocytes 2.64 2.13 (1.2-3.4) K/uL Monocytes # (Manual) 0.61 H 0.49 (0.11-0.59) K/uL Eosinophils # (Manual) (0-0.5) K/uL Basophils # (Manual) 0.17 (0-0.2) K/uL Myelocytes # (Manual) 0.32 H (0-0) K/uL RBC Morphology Unremarkable COVID-19 Eval Order SARS-CoV-2, RNA, NAAT (NEGATIVE) Blood Type O Negative Antibody Screen NEGATIVE Screen Negative (Negative) 11/20/20 Range/Units 12:24 WBC 16.68 H (4.8-10.8) K/uL RBC 2.42 L (4.2-5.4) M/uL Hgb 7.3 L (12.0-16.0) g/dL Hct 22.8 L (37-47) % MCV 94.2 (80-100) fL MCH 30.2 (25-34) pg MCHC 32.0 (32-36) g/dL RDW Std Deviation 47.3 H (36.4-46.3) fL RDW Coeff of Maria D 13.7 (11.5-14.5) % Plt Count 313 (130-400) K/uL MPV 9.0 (7.4-10.4) fL Neutrophils % (Manual) 79.2 % Lymphocytes % (Manual) 13.0 % Monocytes % (Manual) 1.7 % Eosinophils % (Manual) 2.6 % Basophils % (Manual) % Myelocytes % (Man) 3.5 % Neutrophils # (Manual) 13.21 H (1.4-6.5) K/uL Total Absolute Neuts 13.21 H (1.4-6.5) K/uL Lymphocytes # (Manual) 2.17 (1.2-3.4) K/uL Total Abs Lymphocytes 2.17 (1.2-3.4) K/uL Monocytes # (Manual) 0.28 (0.11-0.59) K/uL Eosinophils # (Manual) 0.43 (0-0.5) K/uL Basophils # (Manual) (0-0.2) K/uL Myelocytes # (Manual) 0.58 H (0-0) K/uL RBC Morphology COVID-19 Eval Order SARS-CoV-2, RNA, NAAT (NEGATIVE) Blood Type Antibody Screen Screen (Negative) Results & Data ([facility]) Vital Signs (Past 12 Hours) Vital Signs Temp Pulse Resp BP Pulse Ox 11/20/20 19:40 36.9 C 84 18 122/79 11/20/20 16:10 36.8 C 79 18 110/70 99 11/20/20 11:45 36.5 C 83 118/71 99
[2020-11-20] MEDS ORDERED: SODIUM CHLORIDE 0.9% 250 ML IV PRN (23:16)
[2020-11-20] MEDS ORDERED: ACETAMINOPHEN 325 MG TAB PO PRN (23:18)
--- NOTE | 2020-11-20 23:32 | Obstetrical Progress Note ---
Date of Service November 20, 2020 Assessment & Plan Admission and Anticipated Discharge Date Admission Date: November 18, 2020 Subjective Patient decided for blood transfusion She signed and informed consent Discussed the benefits and possible risks All questions were answered Plan to premedicate with PO Tylenol and Benadryl before Results & Data ([facility]) Vital Signs (Past 12 Hours) Vital Signs Temp Pulse Resp BP Pulse Ox 11/20/20 19:40 36.9 C 84 18 122/79 11/20/20 16:10 36.8 C 79 18 110/70 99 11/20/20 11:45 36.5 C 83 118/71 99
[2020-11-21] MEDS: IBUPROFEN 600 MG TAB PO PRN ×3 (03:19→11:36)
[2020-11-21] MEDS: oxyCODONE/ACETAMINOPHEN 5mg/325mg TAB PO PRN ×3 (03:19→11:36)
[2020-11-21 07:08] LABS: Hematocrit (blood only) 28.4 % (37-47); Hemoglobin 9.2 g/dL (12.0-16.0); Mean Corpuscular Hemoglobin 30.1 pg (25-34); Mean Corpuscular Hgb Conc 32.4 g/dL (32-36); Mean Corpuscular Volume 92.8 fL (80-100); Platelet Count 273 K/uL (130-400); RDW Coefficient of Variation 13.9 % (11.5-14.5); RDW Standard Deviation 46.7 fL (36.4-46.3); Red Blood Count 3.06 M/uL (4.2-5.4); White Blood Count 12.56 K/uL (4.8-10.8)
[2020-11-21] MEDS: FERROUS SULFATE 325 MG TAB PO SCH (07:41)
[2020-11-21 07:49] LABS: ALC (manual) 2.63 K/uL (1.2-3.4); Eosinophils # (manual) 0.44 K/uL (0-0.5); Eosinophils % (manual) 3.5 %; Lymphocytes # (manual) 2.63 K/uL (1.2-3.4); Lymphocytes % (manual) 20.9 %; Metamyelocytes # (manual) 0.21 K/uL (0-0); Metamyelocytes % (manual) 1.7 %; Monocytes # (manual) 0.44 K/uL (0.11-0.59); Monocytes % (manual) 3.5 %; Myelocytes # (manual) 0.44 K/uL (0-0); Myelocytes % (manual) 3.5 %; Neutrophils % (manual) 66.9 %; RBC Morphology Unremarkable
[2020-11-21] MEDS: SIMETHICONE 80 MG CHEW PO SCH (08:55)
[2020-11-21] MEDS: DOCUSATE SODIUM 100 MG CAP PO SCH (08:56)
[2020-11-21] MEDS: PRENATAL VITAMIN 1 TAB PO SCH (08:56)
--- NOTE | 2020-11-21 09:59 | Obstetrical Progress Note ---
Date of Service November 21, 2020 Assessment & Plan (1) Delivery by section using transverse incision of lower segment of uterus: DISCHARGED Subjective Ambulation: ambulating normally Voiding: no voiding problems Passing Gas:: Yes Diet Tolerance:: regular diet Feeding Type:: breast feeding Current Pain Level(1-10): 0 no diszziness or lightheadedness or SOB post transfusion Physical Exam Constitutional WD/WN, vitals as above comfortable Gastrointestinal (Abdomen) normal bowel sounds, soft, nontender, no hepatosplenomegaly Inspection/Auscultation: + abdominal surgical incision incision c/d/i no edema neg Davide's for d/c today Results & Data ([facility]) Vital Signs (Past 12 Hours) Vital Signs Temp Pulse Pulse Resp BP BP Pulse Ox 11/21/20 07:30 36.8 C 86 18 117/78 100 11/21/20 05:42 72 16 112/77 97 11/21/20 05:00 36.5 C 66 16 112/77 97 11/21/20 04:30 36.8 C 68 16 113/78 97 11/21/20 04:15 36.7 C 74 18 118/81 98 11/21/20 03:55 36.5 C 75 18 117/78 97 11/21/20 03:50 36.5 C 74 18 117/78 97 11/21/20 03:15 36.5 C 73 16 115/79 97 11/21/20 02:15 36.7 C 70 16 130/80 97 11/21/20 01:45 36.6 C 72 16 104/70 98 11/21/20 01:30 36.7 C 74 16 121/77 98 11/21/20 01:11 36.8 C 78 16 104/67 98 11/20/20 23:20 36.7 C 84 20 108/69 98 Laboratory Results Laboratory Results - last 72 hr 11/18/20 11/19/20 11/19/20 00:57 06:10 06:10 WBC 23.37 H RBC 2.76 L Hgb 8.4 L Hct 25.6 L MCV 92.8 MCH 30.4 MCHC 32.8 RDW Std Deviation 45.1 RDW Coeff of Maria D 13.4 Plt Count 276 MPV 9.1 Neutrophils % (Manual) 86.1 Lymphocytes % (Manual) 11.3 Monocytes % (Manual) 2.6 Eosinophils % (Manual) Basophils % (Manual) Metamyelocytes % (Man) Myelocytes % (Man) Neutrophils # (Manual) 20.12 H Total Absolute Neuts 20.12 H Lymphocytes # (Manual) 2.64 Total Abs Lymphocytes 2.64 Monocytes # (Manual) 0.61 H Eosinophils # (Manual) Basophils # (Manual) Metamyelocytes # (Man) Myelocytes # (Manual) RBC Morphology Blood Type O Negative Blood Type Recheck O Negative Antibody Screen NEGATIVE Screen Negative Crossmatch See Detail 11/20/20 11/20/20 11/21/20 07:07 12:24 06:49 WBC 18.88 H 16.68 H 12.56 H RBC 2.50 L 2.42 L 3.06 L Hgb 7.5 L 7.3 L 9.2 L Hct 23.4 L 22.8 L 28.4 L MCV 93.6 94.2 92.8 MCH 30.0 30.2 30.1 MCHC 32.1 32.0 32.4 RDW Std Deviation 47.1 H 47.3 H 46.7 H RDW Coeff of Maria D 13.7 13.7 13.9 Plt Count 305 313 273 MPV 8.9 9.0 9.0 Neutrophils % (Manual) 83.5 79.2 66.9 Lymphocytes % (Manual) 11.3 13.0 20.9 Monocytes % (Manual) 2.6 1.7 3.5 Eosinophils % (Manual) 2.6 3.5 Basophils % (Manual) 0.9 Metamyelocytes % (Man) 1.7 Myelocytes % (Man) 1.7 3.5 3.5 Neutrophils # (Manual) 15.76 H 13.21 H 8.40 H Total Absolute Neuts 15.76 H 13.21 H 8.40 H Lymphocytes # (Manual) 2.13 2.17 2.63 Total Abs Lymphocytes 2.13 2.17 2.63 Monocytes # (Manual) 0.49 0.28 0.44 Eosinophils # (Manual) 0.43 0.44 Basophils # (Manual) 0.17 Metamyelocytes # (Man) 0.21 H Myelocytes # (Manual) 0.32 H 0.58 H 0.44 H RBC Morphology Unremarkable Unremarkable Blood Type Blood Type Recheck Antibody Screen Screen Crossmatch
--- NOTE | 2020-11-26 11:55 | Discharge Summary (DS) ---
DATE OF ADMISSION: 11/18/2020 DATE OF DISCHARGE: 11/21/2020 DETAILS OF ADMISSION: The patient is a 30-year-old G2, P1-0-0-1, at 39 weeks and 3 days of gestation, who presented to labor and delivery with spontaneous rupture of membranes and in early labor. She was admitted and she had regular contractions and progressed to full dilatation spontaneously without any Pitocin. GBS was negative. heart rate was reassuring at category 1. In the morning, she was found to be fully dilated and desired to push. With each pushing, heart rate was having prolonged decelerations and head was still high with no descent with pushing. After discussion with the patient, recommended to have imminent delivery with primary . She signed an informed consent. She was taken to the operating room and had primary low transverse and delivered a viable male infant at 8:19 a.m. Her surgery was uncomplicated. See dictated OP note for details. On her postop period, the patient was doing well, vital signs were stable, afebrile. Urine output was adequate. Pain was under control with medications. The baby was doing well. She was tolerating clear diet. Her physical exam was unremarkable. Bleeding was minimal. On postop day #1, the patient was seen by Dr. Fox. Vital signs stable, afebrile. She was passing gas, tolerating regular diet, , ambulating. Physical exam was unremarkable. Fundus was firm below the umbilicus. Bleeding was minimal. Incision was clean, dry and intact. On postoperative day #2, patient was seen and examined by myself. Her vital signs were stable. Her H and H was 7.5/23.4. The patient was feeling tired, but she was planning to go home if possible on postoperative day #2. She was started on iron twice a day and her blood count was repeated at noon, which was 7.3/22.8. In the afternoon, the patient felt more fatigued and tired and we discussed blood transfusion versus oral iron therapy. She decided to have a blood transfusion. She received 2 units of packed red blood cells and on postoperative day #3, her H and H increased to 9.2/28.4. Her vital signs were stable, afebrile. She was sent home on postoperative day #3 on 11/21/2020. Discharge instructions were given on when to call, prescriptions were written for pain and iron. She is to be seen in the office in a week. Job ID: [id number] PAOLO
--- NOTE | 2020-12-02 10:09 | Coding Query ---
ANEMIA To promote full compliance with coding requirements relating to patient care, physician participation is requested in all cases of pie topper uncertainty. Please assist us with the question(s) below: Coding Question(s): The record reflects the following clinical findings: Patient transfused during this admission. If these findings are indicative of anemia, please specify the known or suspected type by placing an "X" within the parenthesis (x). If other, please document type. Examples are: ( ) Acute blood loss anemia (X ) Acute Postoperative blood loss anemia ( ) Acute postoperative anemia due to dilutional fluids ( ) Chronic blood loss anemia ( ) Anemia of chronic disease ( ) Aplastic anemia ( ) Anemia due to renal disease ( ) Anemia in neoplastic disease ( ) Iron deficient anemia ( ) Anemia, unspecified or other ( ) Other: (please specify) ( ) Unable to determine Thank you Christopher BOONE
== END 2020-11-21 11:55 | disposition home or self-care (01) | DRG 788 ==
LOC: OPB 23:58 → 4S1 11-18 00:03 → 4S2 11-18 11:35
DX: O42.02 Full-term premature rupture of membranes, onset of labor within 24 hours of rupture; O99.03 Anemia complicating the puerperium; Z3A.39 39 weeks gestation of pregnancy; Z37.0 Single live birth; O77.9 Labor and delivery complicated by fetal stress, unspecified; O62.1 Secondary uterine inertia; O69.2XX0 Labor and delivery complicated by other cord entanglement, with compression, not applicable or unspecified

== ENCOUNTER 2024-04-27 05:32 | Inpatient (IN) ==
--- NOTE | 2024-04-13 13:22 | Anesthesiology Consultation ---
Date of Service April 13, 2024 Assessment & Plan (1) Encounter for pre-operative examination: Infectious disease screening: Per assessment on 04/13/24- No known recent infectious disease contacts. Patient had onset of URI symptoms 03/20/24- fever, cough, sore throat > cough, congestion/rhinorrhea. Prescribed Amoxicillin- to be completed 04/17/24. Symptoms onset > 10 days prior to . Patient advised to contact OB/PAT if symptoms not at baseline prior to DOS. Okay to proceed as scheduled pending evaluation DOS. 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 Surgery Operation Date: 04/27/24 09:10 Proposed Procedures p Repeat Section - Sushila Che MD Height/Weight Height: 5 ft 2 in Weight: 86.183 kg Allergies Allergy/AdvReac Type Severity Reaction Status Date / Time No Known Allergies Allergy Verified 04/13/24 12:41 Medications Home Medications Medication Instructions Recorded Confirmed Last Taken amoxicillin 875 mg-potassium 1 tab PO BID 04/13/24 04/13/24 Unknown clavulanate 125 mg tablet [id number] 1 mg 1 tab PO DAILY 04/13/24 04/13/24 Unknown tablet Past Medical History Medical History Anemia Iron infusions x2 History of blood transfusion 2020 r/t hemorrhage Past Surgical History Surgical History History of nasal surgery (2005) due to fracture History of wisdom tooth extraction Hx of adenoidectomy Hx of section (11/18/20) emergent Social History Smoking Status: Never smoker Do You Dip or Chew Tobacco: No Hx Alcohol Use: Yes Alcohol Intake Frequency Comment: socially when not Hx Substance Use: No substance use type: does not use Testing Laboratory Results 03/21/24 WBC 16.16 H/H 10.5/33.5 PLATELETS 300 IRON 71 IBC 402 TRANSFERRIN SAT PERCENT 18 FERRITIN 190 Electrocardiogram Date: 02/09/24 Findings: + NSR @ (82)
[2024-04-27 06:11] LABS: Hematocrit (blood only) 33.9 % (37.0-47.0); Hemoglobin 11.5 g/dl (12.0-16.0); Mean Corpuscular Hemoglobin 30.6 pg (25.0-34.0); Mean Corpuscular Hgb Conc 33.9 g/dL (32.0-36.0); Mean Corpuscular Volume 90.2 fL (80.0-100.0); Mean Platelet Volume 9.5 fL (9.4-12.4); Platelet Count 276 K/uL (130-400); RDW Coefficient of Variation 14.9 % (11.5-14.5); RDW Standard Deviation 49.2 fL (36.4-46.3); Red Blood Count 3.76 M/uL (4.20-5.40); White Blood Count 17.95 K/ul (4.8-10.8)
[2024-04-27] MEDS ORDERED: SODIUM CHLORIDE 0.9% 1,000 ML IV SCH (06:45)
[2024-04-27] MEDS ORDERED: MoRPHine SULFATE PF 1 MG/ML 10 ML AMP/VIAL ONE (07:00)
[2024-04-27] MEDS ORDERED: PHENYLEPHRINE HCL 25 MG/250 ML NSS IV ONE (07:02)
[2024-04-27] MEDS: ACETAMINOPHEN 500 MG TAB PO SCH (07:10)
[2024-04-27] MEDS ORDERED: SODIUM CHLORIDE 0.9% 100 ML IV PRN ×2 (07:11→07:33)
[2024-04-27] MEDS: SODIUM CHLORIDE 0.9% 1,000 ML IV SCH (07:11)
[2024-04-27] MEDS ORDERED: SODIUM CHLORIDE 0.9% 50 ML IV PRN ×2 (07:11→07:33)
[2024-04-27] MEDS ORDERED: OXYTOCIN 10 UNITS/ML VIAL ONE (07:15)
[2024-04-27] MEDS ORDERED: METOCLOPRAMIDE HCL INJ 5 MG/ML 2 ML VIAL ONE (07:17)
[2024-04-27] MEDS ORDERED: ONDANSETRON INJ 2 MG/ML 2 ML VIAL ONE (07:17)
[2024-04-27] MEDS ORDERED: DEXAMETHASONE SOD INJ 4 MG/ML VIAL ONE (07:17)
--- NOTE | 2024-04-27 07:21 | History & Physical Report ---
Date of Service April 27, 2024 Assessment & Plan (1) Delivery by section using transverse incision of lower segment of uterus: Plan: Admit tot L and D NPO/IV Fluids Ancef 2 gm, Pepcid, Bicitra Cash to gravity consent obtained, discussed the risks and benefits of section, BTL discussed Pt and her partner verbalized understanding, all their questions answered OR and Anesthesia informed Present on Admission?: Yes (2) No known health problems: Present on Admission?: Yes Admission and Anticipated Discharge Date Admission Date: April 27, 2024 History of Present Illness Chief Complaint: scheduled repeat low transverse section, BTL Primary Care Provider: Gus Khan MD Pt with one prior C/S desiring low transverse section , BT. Pt denies regular uterine contractions, vaginal bleeding, leaking of fluid per vagina etc. Reports good movement. Allergies Allergy/AdvReac Type Severity Reaction Status Date / Time No Known Allergies Allergy ? Verified 04/21/24 20:11 Home Medications Medication Instructions Recorded Confirmed Type [id number]-[id number] 1 mg 1 tab PO DAILY 04/13/24 04/27/24 History tablet Past Med/Surg History Problem List Encounter for pre-operative examination Delivery by section using transverse incision of lower segment of uterus No known health problems Medical History Anemia Iron infusions x2 History of blood transfusion 2020 r/t hemorrhage Spontaneous rupture of amniotic membranes Depression no meds Anxiety Spontaneous vaginal delivery 01/2009 [facility] Surgical History Hx of adenoidectomy History of wisdom tooth extraction History of nasal surgery (2005) due to fracture Hx of section (11/18/20) emergent Status post tonsillectomy and adenoidectomy Family History Father Diabetes Sister Thyroid ca Grandmother (Paternal) Breast cancer Social History Smoking Status: Never smoker Second Hand Exposure: No; Do You Dip or Chew Tobacco: No; Tobacco Cessation Education Requested by Patient: No Hx Alcohol Use: Yes Hx Substance Use: No Preferred Language: Albanian Communication Ability: Effective Biomedical Instrument 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 Required: No Beliefs That Will Affect Care: None marital status: Current Living Situation: Spouse and Family Current Living Situation Comment: , daughter, and son Other Information That Helps Us Care for You: No Feels Safe at Home: Yes Safety Concerns: Feels Safe At This Time Assistive Devices: None Review of Systems Review of Systems: All systems reviewed & are unremarkable except as noted in HPI & below Constitutional: as per Subjective / HPI Respiratory: as per Subjective / HPI Cardiovascular: as per Subjective / HPI Gastrointestinal: as per Subjective / HPI Genitourinary: as per Subjective / HPI Physical Exam Constitutional: WD/WN, vitals as above Respiratory: normal respiratory effort, lungs clear to auscultation Cardiovascular: RRR, no murmur, no edema Gastrointestinal (Abdomen): normal bowel sounds, soft, nontender, no hepatosplenomegaly Skin: no rashes, warm and dry Psychiatric: A+Ox3, euthymic affect Genitourinary: no vaginal lesions, no adnexal mass OB Exam Abdomen: + vertex OB Exam Monitor Tracing: + external FHT monitor used, + external uterine monitor used, + category I and + normal FHT variability Results & Data Results & Data Vital Signs (Past 12 Hours) Vital Signs Temp Pulse Resp BP 04/27/24 07:04 96 H 118/70 04/27/24 05:52 91 H 119/77 04/27/24 05:47 18 04/27/24 05:47 36.6 C 18 04/27/24 05:45 36.6 C 18 Code Status & VTE Plan VTE Prophylaxis Plan VTE Prophylaxis will be ordered: No Critical Care Time Critical Care Time: No Prolonged Care Time Prolonged Care Time: No Critical Care Time Critical Care Time: No
[2024-04-27] MEDS: ceFAZolin 2000MG 2,000 MG/15 ML SYR IV SCH (08:17)
[2024-04-27] MEDS: CITRIC ACID/SODIUM CITRATE 15 ML UDC PO SCH (08:25)
[2024-04-27] MEDS ORDERED: diphenhydrAMINE 50 MG/ML VIAL IV PRN (08:47)
[2024-04-27] MEDS ORDERED: MoRPHine SULFATE 2 MG/ML CARP IV PRN (08:47)
[2024-04-27] MEDS ORDERED: NALOXONE HCL 0.08 MG in SYRINGE 1.8 ML IV PRN (08:47)
[2024-04-27] MEDS ORDERED: PROMETHAZINE 6.25 MG/50.25 ML BAG IV PRN (08:47)
[2024-04-27] MEDS ORDERED: ePHEDrine sulfate 50 MG/ML AMP IV PRN (08:47)
[2024-04-27] MEDS ORDERED: NALOXONE HCL 0.4 MG/1 ML VIAL/CARP IV PRN (08:47)
[2024-04-27] MEDS ORDERED: NALBUPHINE HCL INJ 10 MG/ML AMP IV PRN (08:47)
[2024-04-27] MEDS ORDERED: oxyCODONE HCL IR 5 MG TAB (IMMEDIATE RELEASE) PO PRN (08:47)
[2024-04-27] MEDS ORDERED: NALOXONE HCL 1 MG in SODIUM CHLORIDE 0.9% 1,000 ML IV PRN (08:47)
[2024-04-27] MEDS ORDERED: ONDANSETRON INJ 2 MG/ML 2 ML VIAL IV PRN (08:47)
[2024-04-27] MEDS ORDERED: PHENYLEPHRINE 100MCG/ML 5ML SYR ONE (08:49)
[2024-04-27] MEDS ORDERED: ePHEDrine sulfate 50 MG/5 ML SYR ONE (08:49)
[2024-04-27] MEDS ORDERED: NO NARCOTICS OR SEDATIVES SCH (09:00)
[2024-04-27] MEDS ORDERED: DC INTRASPINAL MORPHINE SCH (09:00)
[2024-04-27] MEDS: OXYTOCIN 20 UNITS/LR 1,002 ML IV SCH (09:48)
[2024-04-27] MEDS: OXYTOCIN 20 UNITS/1002ML LR IV ONE (09:48)
[2024-04-27] MEDS ORDERED: CALCIUM CARBONATE 500 MG CHEWABLE TAB PO PRN (10:08)
[2024-04-27] MEDS ORDERED: HYDROCORTISONE ACETATE 25 MG SUPP PR PRN (10:08)
[2024-04-27] MEDS ORDERED: BENZOCAINE 20% SPRY 85 APPLN/85 GM CAN EXT PRN (10:08)
[2024-04-27] MEDS ORDERED: SENNA 8.6 MG TAB PO PRN (10:08)
[2024-04-27] MEDS ORDERED: MAGNESIUM HYDROXIDE SUSP 30 ML UDC PO PRN (10:08)
--- NOTE | 2024-04-27 10:12 | Post Operative Brief Note ---
Immediate Post Op Note Date of Surgery April 27, 2024 Pre & Post Diagnosis Operation Date: 04/27/24 07:30 Pre-Op Diagnosis: Repeat low transverse section with voluntary sterilization Post-Op Diagnosis: Same, delivery of a live female child at 0900 I identified the patient and participated in the time-out.: Yes Procedure Operation Date: 04/27/24 07:30 Actual Procedures p Repeat Section of live female at 0900(Bilateral) - Sushila Che MD Surgeon Sushila Che MD Associate Chief Nurse Khalida WATSON Estimated Blood Loss 493 (QBL) Findings Consistent with Post-Op Diagnosis Fluids 2 L LR Specimens left and right fallopian tubes Drains Cash Catheter (Placed by this RN, pt tolerated well, draining clear yellow urine, anesthesia monitoring output during surgery) Complications none Disposition Accompanied Patient To Recovery: Yes
--- NOTE | 2024-04-27 10:16 | Operative Report ---
Post Operative Report Pre & Post Diagnosis Operation Date: 04/27/24 07:30 Pre-Op Diagnosis: Repeat low transverse section with voluntary sterilization Post-Op Diagnosis: Same, delivery of a live female child at 0900 I identified the patient and participated in the time-out.: Yes Procedure Operation Date: 04/27/24 07:30 Actual Procedures p Repeat Section of live female at 0900(Bilateral) - Sushila Che MD Surgeon Sushila Che MD Inspector Machined Parts Khalida WATSON Quantitative Blood Loss (QBL) 484 cc Findings Consistent with Post-Op Diagnosis normal tubes and ovaries with small left paratubal cyst Fluids LR 2 L Specimens bilateral fallopin tubes Drains Cash catheter Anesthesia Type MAC Spinal Regional Complications none Disposition Accompanied Patient To Recovery: Yes Indications schedule repeat section , Voluntarily sterilization Description of Procedure DATE OF SURGERY: 04/27/2024 PREOPERATIVE DIAGNOSES: The patient is a 34 year-old G3, P2,, who presents to labor and delivery for scheduled repeat low transverse section, BTL POSTOPERATIVE DIAGNOSES: same PROCEDURE: scheduled repeat low transverse with Pfannenstiel skin incision, BTL SURGEON: Dr. Rosemary Che MD POWER SYSTEM DISPATCHER: Khalida WATSON ESTIMATED BLOOD LOSS: 484 mL. DRAINS: Cash catheter drained 250 mL of clear urine. ANESTHESIA: spinal COMPLICATIONS: None. FINDINGS: Baby was a viable female delivered with Apgars were 8/9, the baby was in Breech presentation FINDINGS: Normal uterus, fallopian tubes, and ovaries. DESCRIPTION OF PROCEDURE: The patient was taken to the operating room where spinal anesthesia was found to be adequate. She was placed in dorsal supine position with a leftward tilt. She was prepared and draped in the usual sterile fashion. A Pfannenstiel skin incision was made and carried through to the underlying layer of fascia with the Bovie. Fascia was incised in the midline and the incision was extended laterally with the help of tip of the Bovie and the lower aspect of the fascial incision was dissected off from the rectus muscles with the Toth scissors and then upper aspect of the fascial incision was grasped with 2 Garry clamps, elevated, and underlying rectus muscles were dissected off sharply with Toth scissors and bluntly with fingers. Rectus muscles were already the peritoneum was entered bluntly with fingers. Peritoneal incision was extended superiorly and inferiorly with good visualization of the bladder. Bladder blade was inserted. Vesicouterine peritoneum was identified, grasped with pickups, and entered sharply with Metzenbaum scissors. Bladder flap was created digitally and the bladder blade was reinserted. Lower uterine segment was incised in a transverse fashion and a membranes were ruptured. Clear fluid was obtained. This incision was extended laterally with the help of fingers and then there was a cord on the incision. in karen breech delivery , delivered without difficulty, body followed by the head, then baby was delivered without difficulty, Cord was clamped x2 and cut at 30 sec delay. Baby was handed to the waiting pediatric team. Placenta was delivered manually as intact and complete. Uterus was exteriorized and cleared of all clots and debris. Uterine incision was repaired with 0 Vicryl in a running locked fashion. Imbricating second layer was placed with another 0 Vicryl in a running locked fashion. Uterine incision was hemostatic. bilateral fallopian tubes normal, left fallopian tube grasped with Nidhi clamp, from cornua to the fimbria, with hand held ligature, tube was coagulated and cut across the mesosalpinx and whole fallopian tube was removed and same repeated on the right side and both the tubes were sent to pathology. Ovaries were checked to be normal as well as cul-de-sac peritoneum and the uterus and then uterus was returned to the abdomen. Uterine incision was checked to be hemostatic again. Parietal peritoneum was reapproximated with 2-0 Vicryl in a running fashion and the rectus muscles were reapproximated with the same suture in a running fashion. Rectus muscles and under the fascia were hemostatic. Fascia was reapproximated with 0 Vicryl in a running fashion and the subcuticular fat tissue was brought together with 2-0 Vicryl in a running fashion. The skin was closed with 3- 0 Monocryl on a Joaquin needle in a subcuticular fashion. The patient tolerated the procedure well. Sponge, lap, and needle count was correct x3. She was given 2 g of cefazolin before surgery. She was taken to recovery room in stable condition. No complications happened and I was present during whole procedure. I attest to the content of the Intraoperative Record and any orders documented therein. Any exceptions are noted below.
[2024-04-27] MEDS: KETOROLAC 30 MG/ML VIAL IV SCH (10:27)
--- NOTE | 2024-04-27 10:48 | Operative Report ---
<Statement entered by Sushila Che MD - 04/27/24 10:47> see OP report Post Operative Report Pre & Post Diagnosis Operation Date: 04/27/24 07:30 Pre-Op Diagnosis: Repeat low transverse section with voluntary sterilization Post-Op Diagnosis: Same, delivery of a live female child at 0900 I identified the patient and participated in the time-out.: Yes Procedure Operation Date: 04/27/24 07:30 Actual Procedures p Repeat Section of live female at 0900(Bilateral) - Sushila Che MD Surgeon Sushila Che MD Shrinking Machine Operator Khalida WATSON Quantitative Blood Loss (QBL) 484 Findings Consistent with Post-Op Diagnosis Specimens bilateral fallopian tubes Complications none Disposition Accompanied Patient To Recovery: Yes Description of Procedure see op report I attest to the content of the Intraoperative Record and any orders documented therein. Any exceptions are noted below.
[2024-04-27] MEDS: MoRPHine SULFATE PF 1 MG/ML 10 ML AMP/VIAL INT SPINAL ONE (11:37)
[2024-04-27] MEDS: DIPHTHER/TETAN/PERTUS Vaccine (Tdap, Adol/Adult) 0.5mL IM ONE (11:38)
--- NOTE | 2024-04-27 12:05 | Anesthesiology Progress Note ---
Date of Service April 27, 2024 Anesthesia Post Procedure Vital Signs Vital Signs: Temp Pulse Resp BP Pulse Ox O2 Del Method 04/27/24 12:02 78 100 04/27/24 11:57 89 100 04/27/24 11:52 87 100 04/27/24 11:50 79 119/61 04/27/24 11:47 92 H 100 04/27/24 11:42 87 100 04/27/24 11:40 79 120/59 L 04/27/24 11:37 85 100 04/27/24 11:32 97 H 100 04/27/24 11:30 91 H 140/65 04/27/24 11:27 87 100 04/27/24 11:22 82 100 04/27/24 11:20 85 126/61 04/27/24 11:17 91 H 100 04/27/24 11:12 84 100 04/27/24 11:10 15 04/27/24 11:10 83 127/60 04/27/24 11:07 76 100 04/27/24 11:02 92 H 100 04/27/24 11:00 88 120/60 04/27/24 10:57 82 100 04/27/24 10:52 78 98 04/27/24 10:50 82 112/60 04/27/24 10:49 16 04/27/24 10:47 84 100 04/27/24 10:42 74 99 04/27/24 10:40 36.3 C L 16 04/27/24 10:40 36.3 C L 15 04/27/24 10:40 91 H 122/63 04/27/24 10:37 81 99 04/27/24 10:32 88 98 04/27/24 10:30 15 04/27/24 10:30 88 118/59 L 04/27/24 10:27 95 H 98 04/27/24 10:22 93 H 96 04/27/24 10:20 92 H 118/61 04/27/24 10:17 92 H 97 04/27/24 10:13 93 H 94 04/27/24 10:12 89 95 04/27/24 10:10 16 04/27/24 10:10 95 H 119/57 L 04/27/24 10:07 96 H 97 04/27/24 10:02 83 97 04/27/24 10:01 103 H 133/60 04/27/24 10:00 15 04/27/24 09:57 94 H 99 04/27/24 09:52 93 H 99 04/27/24 09:51 103 H 119/58 L 04/27/24 09:50 15 04/27/24 09:47 95 H 99 04/27/24 09:42 95 H 100 04/27/24 09:40 36.4 C L 18 04/27/24 09:40 36.4 C L 15 97 Room Air 04/27/24 09:37 97 H 116/56 L 98 04/27/24 07:04 96 H 118/70 04/27/24 07:00 17 04/27/24 07:00 36.8 C 17 04/27/24 05:52 91 H 119/77 04/27/24 05:47 18 04/27/24 05:47 36.6 C 18 04/27/24 05:45 36.6 C 18 Pain Intensity Lower Abdomen: Pain Intensity: 2 Transfer of Care Handoff Completed per policy Notes Mental Status: alert / awake / arousable Patient Amnestic to Procedure: Yes Nausea / Vomiting: adequately controlled Pain: adequately controlled Airway Patency, RR, SpO2: stable & adequate BP & HR: stable & adequate Hydration State: stable & adequate Neuraxial Anesthesia: was administered and sensory block is resolving Anesthetic Complications: no major complications apparent
[2024-04-27] MEDS: SIMETHICONE 80 MG CHEW PO SCH (12:56)
[2024-04-27] MEDS: ACETAMINOPHEN 325 MG TAB PO SCH (17:08)
[2024-04-27] MEDS: DOCUSATE SODIUM 100 MG CAP PO SCH (20:35)
[2024-04-27] MEDS: LIDOCAINE 2% JELLY 5 ML TUBE EXT ONE (23:22)
[2024-04-28] MEDS ORDERED: diphenhydrAMINE Capsule 25 MG CAP PO PRN (02:47)
[2024-04-28] MEDS ORDERED: ONDANSETRON INJ 2 MG/ML 2 ML VIAL IV PRN (02:47)
[2024-04-28] MEDS ORDERED: diphenhydrAMINE 50 MG/ML VIAL IV PRN (02:47)
[2024-04-28] MEDS ORDERED: HYDROmorphone INJ 0.5 MG/0.5 ML SYR IV PRN (02:47)
[2024-04-28] MEDS ORDERED: PROMETHAZINE 12.5 MG/50.5 ML BAG IV PRN (02:47)
[2024-04-28 06:15] LABS: Basophils # (auto) 0.08 K/uL (0.00-0.20); Basophils % (auto) 0.4 %; Eosinophils # (auto) 0.18 K/uL (0.00-0.50); Hemoglobin 9.4 g/dl (12.0-16.0); Immature Granulocytes # (auto) 0.73 K/uL (0.01-0.20); Lymphocytes % (auto) 14.7 %; Mean Corpuscular Hemoglobin 31.2 pg (25.0-34.0); Mean Corpuscular Hgb Conc 33.6 g/dL (32.0-36.0); Mean Platelet Volume 9.5 fL (9.4-12.4); Monocytes # (auto) 1.33 K/uL (0.11-0.59); Monocytes % (auto) 7.3 %; Neutrophils # (auto) 13.32 K/uL (1.40-6.50); Neutrophils % (auto) 72.6 %; Platelet Count 256 K/uL (130-400); RDW Standard Deviation 50.8 fL (36.4-46.3); Red Blood Count 3.01 M/uL (4.20-5.40); White Blood Count 18.34 K/ul (4.8-10.8)
[2024-04-28] MEDS: FERROUS SULFATE 325 MG TAB PO SCH (09:09)
[2024-04-28] MEDS: PRENATAL VITAMIN 1 TAB PO SCH (09:09)
--- NOTE | 2024-04-28 09:50 | Obstetrical Progress Note ---
Date of Service April 28, 2024 Assessment & Plan Admission and Anticipated Discharge Date Admission Date: April 27, 2024 Subjective abdomen soft and non tender incision is clean and dry passing gas no calf tenderness ambulating well vaginal bleeding scant hgb 9.4 Results & Data Vital Signs (Past 12 Hours) Vital Signs Temp Pulse Pulse Resp BP Pulse Ox O2 Del Method 04/28/24 08:30 37.0 C 83 20 117/74 98 Room Air 04/28/24 04:30 36.9 C 88 18 97/63 L 96 Room Air 04/28/24 02:35 16 97 04/28/24 01:40 16 96 04/28/24 00:30 18 96 04/27/24 23:30 Room Air 04/27/24 23:30 36.8 C 86 18 122/72 98 Room Air 04/27/24 23:11 18 98
[2024-04-28] MEDS ORDERED: KETOROLAC 30 MG/ML VIAL IV PRN (10:08)
[2024-04-28] MEDS ORDERED: SODIUM CHLORIDE 0.9% 1,000 ML IV SCH (10:30)
[2024-04-28] MEDS: IBUPROFEN 600 MG TAB PO SCH (10:35)
[2024-04-28] MEDS: oxyCODONE HCL IR 5 MG TAB (IMMEDIATE RELEASE) PO PRN (18:04)
[2024-04-28] MEDS ORDERED: bisacodyL 5 MG TABEC PO SCH (20:00)
[2024-04-29 00:28] VITALS: PULSE 83
[2024-04-29 07:11] LABS: Hematocrit (blood only) 29.8 % (37.0-47.0); Hemoglobin 9.9 g/dl (12.0-16.0)
--- NOTE | 2024-04-29 08:29 | Discharge Summary ---
Date of Service April 29, 2024 Admission HPI Per Admitting Provider Pt with one prior C/S desiring low transverse section , BTL. Pt denies regular uterine contractions, vaginal bleeding, leaking of fluid per vagina etc. Reports good movement. Discharge Data Consultations 04/27/24 05:32 Consult Anesthesiology Stat Procedures Performed Operation Date: 04/27/24 07:30 Actual Procedures p Repeat Section of live female at 0900(Bilateral) - Sushila Che MD Hospital Course (1) Delivery by section using transverse incision of lower segment of uterus: Discharge Instructions ACTIVITY RECOMMENDATIONS: * Gradual return to full activity over the next 2-3 weeks. * No lifting - nothing heavier than baby over the next 2-3 weeks. * Do not engage in vigorous exercise, sexual activity or sports until cleared by your physician. * Do not drive or operate any motorized equipment until cleared by your physician. * You may shower/bathe daily. BREAST CARE: If you are not breast feeding: * Wear a supportive bra 24 hours a day for one to two weeks. * Avoid stimulating your breasts and nipples as much as possible during the first few weeks after delivery. * When taking a shower, have the warm water hit your back, not breasts. * When your breasts feel full, apply ice packs. Usually three to four times a day helps ease the discomfort. * Take a mild pain medication (Tylenol/Motrin) when you are uncomfortable. If breast feeding: * Use breast milk to lubricate nipples. Lansinoh cream may be used for sore nipples. You do not need to remove cream prior to breast feeding. If using a different brand of cream, check the label for directions regarding removal of cream prior to nursing. * Wear a supportive bra. * If having problems with breasts or breast feeding, call a training consultant or your health care provider. EPISIOTOMY CARE: After delivery, if you have an episiotomy (stitches), the following steps will ease discomfort and aid healing. * For the first 24 hours after delivery, place ice packs next to your episiotomy to help reduce swelling. * After the first 24 hour-period, sitz baths, either portable or in the tub, are suggested. A shower with a shower arm sprayed over the episiotomy may be comforting. * Lanny care should be done after each voiding and bowel movement. Squirt warm water from a plastic bottle over the perineum (region of the body between the anus and urinary opening) and pat dry. * Use Dermoplast to ease discomfort. Shake container. [place] directly over the episiotomy. * Place a Tucks on a clean sanitary pad next to your episiotomy. OVER THE COUNTER MEDICATION: * For discomfort or pain, you may use Acetaminophen (Tylenol), Ibuprofen (Advil), or Naproxen (Aleve) following the package directions. * For constipation you may use Colace following the package directions. SPECIAL CARE INSTRUCTIONS: When you are discharged from the hospital, it is important for you to follow the instructions listed below: * During the first week at home, you should be able to care for yourself and your baby. In addition, the usual light household activities are encouraged. * Limit your activities to the way you feel. Do not try to clean the house or move furniture. Be sensible. * If you actively engage in sports and have done so up until the time of your delivery, you may resume these activities as soon as you feel able. This may take up to one month or even longer. Use good judgment. * Continue to take your vitamins for at least six weeks after the of your baby. * Your diet need not be limited unless you were on a special diet before your delivery. Breast-feeding mothers need around 2500 calories per day and at least 64-80 ounces of fluid per day (8 to 10 glasses). * You should eat foods from the four major food groups. Crash diets or fad diets are to be avoided. Eating lean meats, fresh fruits and vegetables, low-fat dairy products, high fiber foods and a regular exercise program, will help you get back to your pre- weight without putting your health at risk. * Constipation is sometimes a problem after delivery. Take a mild laxative as needed. If breast feeding, Milk of Magnesia is acceptable to use. You may use a suppository or Fleets enema if no episiotomy. * A daily shower or tub bath is suggested. Be sure to thoroughly and gently dry the perineum. * A bloody vaginal discharge will usually continue until around four weeks post . A small amount of bleeding may continue for as long as six weeks. Vaginal discharge changes from the bright red bleeding after delivery to pink then brownish and finally yellowish-pink before becoming white and disappearing. * Bleeding may increase with activity. Your first period may come in 4-8 weeks. If you are breast feeding, your period may be delayed even longer. * [place] (sex) can begin whenever both you and your partner feel comf ortable and do not have any form of genital infection. It is recommended that you wait until after your return appointment and discuss with your physician. If you have questions, please talk to your health care practitioner. A condom should be used to prevent infection and . * Foreplay, gentle intercourse and lubrication is very important the first several times to prevent pain. A water-based lubricant such as K-Y jelly or Astroglide may be used. * Tampons may be used six weeks after delivery. * Douching should be avoided for 6 weeks after delivery. * If you have RH negative blood and your baby is RH positive, you will receive RHOGAM by injection prior to discharge. The nurse will give you a card to keep with you that has the date and place that you received RHOGAM after delivery. * During your care, you had a Rubella screen done to check for the presence of rubella antibodies in your blood. If your test was negative, you will receive a Rubella vaccine prior to discharge. This vaccine may cause a fever, soreness at the injection site and flu-like symptoms. If these symptoms persist, notify your health care practitioner. is not advised for three months after a Rubella vaccine. There is a higher chance of having a baby with defects if conceived within three months of getting the vaccine. * If you were discharged 24 hours from delivery or before 48 hours: Visiting nurses will come to your home 48 hours after discharge to assess you and your baby. The visiting nurse will meet with you while you are in the hospital to arrange a time and get directions to your home. * Verbalizes understanding of car seat law as reviewed with patient nursing. * Car Seat hand-out given and reviewed with patient by nursing. * Shaken baby information reviewed with patient by nursing. Call you doctor if: * Heavy bleeding (saturating several pads an hour) or passing clots the size of your fist. * A fever >101 degrees F (38.3 degrees C) on two occasions four hours apart and/or chills. * Unusual pain in the pelvic or vaginal areas. * "Baby Blues" lasting longer than two weeks. If you have any questions or concerns, call your health care practitioner at . FOLLOW-UP VISIT: * Please call the office at to schedule 3 and 6 week examination. It is important you keep this appointment. * It is important for you to make arrangements for either yearly or twice yearly check-ups thereafter.
[2024-04-29 09:43] VITALS: BP 110/68; RESP 18; TEMP 98.6; O2SAT 98
[2024-04-29] MEDS ORDERED: bisacodyL 10 MG SUPP PR PRN (10:08)
[2024-04-29] MEDS: IBUPROFEN 600 MG TAB PO PRN (10:10)
[2024-04-29] MEDS ORDERED: ACETAMINOPHEN 325 MG TAB PO PRN (16:08)
== END 2024-04-29 12:50 | disposition home or self-care (01) | DRG 785 ==
LOC: 4S1 05:32 → MERGE 07:30 → EDSTATUS 09:10 → 4E2 12:51